=== PATIENT | male | born 1950 | race Caucasian/White ===

== ENCOUNTER 2019-10-01 12:32 | Emergency (ER) | payer MEDICARE, BC ==
[2019-10-01] MEDS: Potassium Chloride 20 MEQ Tab.ER PO ONE (14:07)
[2019-10-01] MEDS: NS + KCl 20mEq/L 1,000 ML IV SCH (14:11)
[2019-10-01] MEDS: Magnesium Sulfate/Water 2 GM in Premix Bag 1 BAG IV ONE (14:33)
--- NOTE | 2019-10-01 14:33 | EDM.PDOC ---
ED HPI GENERAL MEDICAL PROBLEM - General Chief Complaint: Syncope Stated Complaint: syncope Time Seen by Provider: 10/01/19 12:36 Source of Information: Reports: Patient, EMS, Family History Limitations: Reports: No Limitations - History of Present Illness INITIAL COMMENTS - FREE TEXT/NARRATIVE: Patient brought to ER for evaluation via EMS after having three syncopal episodes within a short period of time at home. First episode happened when patient stood up from toilet--he passed out on the floor. No injuries/bruises/pain per patient and EMS from the fall. Son came to assist the patient and get him off bathroom floor and patient passed out again briefly as he sat up. Third episode happened once they got him to a chair. All episodes brief. BP at home noted to be in 70s systolic. IV fluid bolus started by EMS. No history of similar issues per patient. Normal day prior to this for patient. No changes noted in general health over the last few weeks. Denies fever/chills/weight changes. Denies HEENT changes/injury/vision change/change in hearing/congestion/sore throat. Denies neck pain/spinal pain/acute limb pain/pelvis pain. Resp negative for SOB/cough/wheezing/sputum production CV negative for palpitations/chest pain/diaphoresis/dizziness. Positive for syncope. GI negative for nausea/emesis/bowel changes/blood in stool/abdominal pain. Is on peritoneal dialysis. negative for acute changes. Minimal to none in urine output per patient. MS-negative for acute changes/injuries Neuro negative for new focal weakness/headache/speech change Psych negative for acute changes. Patient denies any recent med changes. Family helps him perform dialysis at home. No one sick at household. - Related Data Allergies Allergy/AdvReac Type Severity Reaction Status Date / Time No Known Allergies Allergy Verified 01/08/19 13:28 Home Meds: Home Meds Aspirin [Halfprin] 81 mg PO QAM 06/23/13 [History] Cholecalciferol (Vitamin D3) [Vitamin D3] 5,000 unit PO DAILY 06/23/13 [History] Ferrous Sulfate 325 mg PO BID 06/23/13 [History] atorvaSTATin [Lipitor] 20 mg PO BEDTIME 11/08/13 [History] Cinacalcet [Sensipar] 30 mg PO DAILY@1800 04/08/18 [History] Cyclobenzaprine [Flexeril] 2.5 - 5 mg PO BEDTIME PRN 04/08/18 [History] DULoxetine HCl [Duloxetine HCl] 30 mg PO DAILY 04/08/18 [History] Dextran 70/Hypromellose [Artificial Tears] 15 ml OP Q4HR PRN 04/08/18 [History] Gentamicin [Gentamicin 0.1%] 1 applic TOP DAILY 04/08/18 [History] Insulin Detemir [Levemir Flextouch] 15 units SUBCUT BEDTIME 04/08/18 [History] Insulin Detemir [Levemir Flextouch] 35 units SUBCUT ACBREAKFAST 04/08/18 [ History] Lactulose 15 - 30 ml PO BID PRN 04/08/18 [History] Midodrine 15 mg PO TID 04/08/18 [History] Phentermine HCl [Adipex-P] 18.75 mg PO DAILY 04/08/18 [History] Potassium Chloride 20 meq PO BID 04/08/18 [History] Sevelamer Carbonate [Renvela] 1,600 mg PO DAILY 04/08/18 [History] buPROPion [buPROPion XL] 150 mg PO DAILY 04/08/18 [History] Cyanocobalamin (Vitamin B-12) [Vitamin B-12] 100 mcg PO DAILY 01/08/19 [History] Folic Acid/Vit B Complex and C [Dialyvite] 1 each PO BEDTIME 01/08/19 [History] Furosemide [Lasix] 60 mg PO BID 01/08/19 [History] Gabapentin [Neurontin] 300 mg PO DAILY PRN 01/08/19 [History] Insulin Aspart [NovoLOG] 12 unit SUBCUT DAILY@1200 01/08/19 [History] Insulin Aspart [NovoLOG] 16 unit SUBCUT BIDMEALS 01/08/19 [History] Carmen.dialysis [id number] 7.5 % [Extraneal Icodextrin Dialysis] 2,500 ml IP DAILY 01/08/19 [History] Sennosides/Docusate Sodium [Senna Plus Tablet] 1 each PO DAILY 01/08/19 [History ] Acetaminophen [Tylenol] 650 mg PO Q4H PRN 10/01/19 [History] Adapalene [Differin 0.1% Crm] 1 applic TOP BEDTIME 10/01/19 [History] Mirtazapine 15 mg PO BEDTIME 10/01/19 [History] Past Medical History HEENT History: Reports: Cataract, Impaired Vision, Other (See Below) Other HEENT History: Diabetic retinopathy including retinal hemorrhages and macular edema with current injections. Dry eye syndrome. Cardiovascular History: Reports: CAD, Cardiomyopathy, High Cholesterol, Hypertension, Pulmonary Hypertension, Syncope, Other (See Below) Other Cardiovascular History: Syncopal episodes secondary to hypoglycemia. Left atrial enlargement and pulmonary hypertension by echocardiogram Respiratory History: Reports: COPD, Intubation, Previous, Sleep Apnea, Other ( See Below) Other Respiratory History: Patient compliant with CPAP. Gastrointestinal History: Reports: Cholelithiasis, Chronic Constipation, Other ( See Below) Other Gastrointestinal History: Fatty liver, fatty pancreas, and benign hepatic cyst by ultrasound. Chronic umbilical hernia. Genitourinary History: Reports: BPH, Chronic Renal Insuffiency, Dialysis, Diabetic Nephropathy, Dialysis, Peritoneal, Renal Calculus, Renal Disease, UTI, Recurrent, Other (See Below) Other Genitourinary History: Severe diabetic nephropathy with creatinines greater than 10 with current peritoneal dialysis. History of bilateral renal cysts with right nephrolithiasis but no history of true urolithiasis. Musculoskeletal History: Reports: Arthritis, Back Pain, Chronic, Fracture, Neck Pain, Chronic, Osteoarthritis, Other (See Below) Other Musculoskeletal History: Vertebral body compression fractures. Neurological History: Reports: Neuropathy, Diabetic, Neuropathy, Peripheral, Other (See Below) Other Neuro History: Nonspecific frequent falls and orthostatic hypotension. Psychiatric History: Reports: Addiction, Other (See Below) Other Psychiatric History: Chronic narcotic use secondary to osteoarthritis. Endocrine/Metabolic History: Reports: Diabetes, Type II, Hyperparathyroidism, IDDM, Obesity/BMI 30+, Other (See Below) Other Endocrine/Metabolic History: Hypokalemia Hematologic History: Reports: Anemia, B12 Deficiency, Iron Deficiency, Other ( See Below) Other Hematologic History: Previous IV iron infusions. Oncologic (Cancer) History: Reports: None Dermatologic History: Reports: None - Infectious Disease History Infectious Disease History: Reports: None. Denies: C-Difficile, Chicken Pox, Measles, Meningitis, Mononucleosis, MRSA, Mumps, Pertussis (Whooping Cough), Rheumatic Fever, Rubella, Scarlet Fever, Shingles, VRE - Past Surgical History Head Surgeries/Procedures: Reports: None HEENT Surgical History: Reports: Cataract Surgery, Oral Surgery, Other (See Below) Other HEENT Surgeries/Procedures: Tooth extractions. Bilateral cataract in about 2012. Cardiovascular Surgical History: Reports: None Respiratory Surgical History: Reports: None GI Surgical History: Reports: Colonoscopy, EGD, Other (See Below) Other GI Surgeries/Procedures: EGD and colonoscopy in about 2015 Male Surgical History: Reports: Circumcision, Other (See Below) Other Male Surgeries/Procedures: Circumcision as an infant. Peritoneal catheter placement in about September 2014. Left arm AV fistula placement in January 2018 Endocrine Surgical History: Reports: Parathyroidectomy, Other (See Below) Other Endocrine Surgeries/Procedures: Excision of one parathyroid gland in July 2017. Neurological Surgical History: Reports: Lumbar Spine, Vertebroplasty, Other ( See Below) Other Neurological Surgeries/Procedures: Vertebroplasty and L3 in February 2018 Oncologic Surgical History: Reports: None Dermatological Surgical History: Reports: None - Past Imaging History Past Imaging History: Reports: Angiography (Negative heart catheterization on .), Cardiac Echo (Last echocardiogram on 05/24/14 with ejection fraction of 65% with previous echocardiograms on 08/12/13 and 10/04/11.), MRI (MRI of the lumbar spine on 07/15/16.), Sleep Study (Sleep study with CPAP titration on ), Stress Testing (Persantine PET/CT scan of the heart on 08/12/13. Cardiolite stress test positive for inferior ischemia on 07/15/13 with ejection fraction of 59%. Previous Cardiolite stress test on 10/19/07.), Ultrasound (Gallbladder ultrasound on 01/27/14. Renal ultrasound on 06/23/13, 01/30/13, and 10/23/11.) Social & Family History - Tobacco Use Smoking Status *Q: Never Smoker Second Hand Smoke Exposure: No - Caffeine Use Caffeine Use: Reports: Coffee - Recreational Drug Use Recreational Drug Use: No - Living Situation & Occupation Living situation: Reports: with Family ED ROS GENERAL - Review of Systems Review Of Systems: Comprehensive ROS is negative, except as noted in HPI. ED EXAM, GENERAL - Physical Exam Exam: See Below Exam Limited By: No Limitations General Appearance: Alert, WD/WN, No Apparent Distress Eye Exam: Bilateral Eye: EOMI, PERRL Ears: Hearing Grossly Normal Nose: No: Nasal Deformity, Nasal Swelling, Nasal Drainage Throat/Mouth: Normal Lips, Normal Voice, No Airway Compromise Head: Other (appears to be mild erythema in line across forehead/nontender). No : Facial Swelling, Facial Tenderness, Sinus Tenderness Neck: Supple, Non-Tender, Full Range of Motion. No: Tender Lateral, Tender Midline Respiratory/Chest: No Respiratory Distress, Lungs Clear, Normal Breath Sounds, No Accessory Muscle Use, Chest Non-Tender Cardiovascular: No Murmur, Irregularly Irregular GI/Abdominal: Soft, Non-Tender, No Distention, Pelvis Stable (Male) Exam: Deferred Rectal (Males) Exam: Deferred Back Exam: No: Muscle Spasm Extremities: Non-Tender, Pedal Edema (mild, bilateral) Neurological: Alert, Oriented, Normal Cognition Psychiatric: Normal Affect, Normal Mood Skin Exam: Warm, Dry, Intact EKG INTERPRETATION EKG Date: 10/01/19 Time: 12:53 Rhythm: A-Fib Rate (Beats/Min): 90 [place]: RAD-Right [place] Deviation P-Wave: Absent QRS: Other (morphology suggests aberrant conduction.) ST-T: Other (slightly unusual morphology II and AVF.) QT: Prolonged Comparison: Change From Previous EKG (previous EKG showed sinus rhythm in 2018) Course - Vital Signs Last Recorded V/S: Last Vital Signs Temp 37.0 C 10/01/19 12:33 Pulse 95 10/01/19 14:45 Resp 18 10/01/19 14:45 BP 104/69 10/01/19 14:45 Pulse Ox 95 10/01/19 14:45 - Orders/Labs/Meds Labs: Laboratory Tests 10/01/19 10/01/19 10/01/19 Range/Units 13:15 13:15 13:15 WBC 11.0 H (4.0-10.2) K/uL RBC 4.04 L (4.33-5.41) M/uL Hgb 13.0 L D (13.1-16.8) g/dL Hct 38.2 L (39.0-49.0) % MCV 94.6 (84.0-98.0) fL MCH 32.2 (28.2-33.3) pg MCHC 34.0 (31.7-36.0) g/dL RDW 14.4 H (11.2-14.1) % Plt Count 221 (150-350) K/uL Neut % (Auto) 79.5 (45.0-80.0) % Lymph % (Auto) 10.8 (10.0-50.0) % [place] % (Auto) 7.4 (2.0-14.0) % Eos % (Auto) 1.8 (0.0-5.0) % Baso % (Auto) 0.5 (0.0-2.0) % Neut # (Auto) 8.71 H (1.40-7.00) K/uL Lymph # (Auto) 1.19 (0.50-3.50) K/uL [place] # (Auto) 0.81 (0.00-1.00) K/uL Eos # (Auto) 0.20 (0.00-0.50) K/uL Baso # (Auto) 0.06 (0.00-0.20) K/uL Sodium 130 L (136-145) mmol/L Potassium 2.4 L* (3.5-5.1) mmol/L Chloride 93 L (98-107) mmol/L Carbon Dioxide 27.2 (21.0-32.0) mmol/L BUN 21 H (7-18) mg/dL Creatinine 8.82 H* (0.51-1.17) mg/dL Est Cr Clr Drug Dosing 8.51 mL/min Estimated GFR (MDRD) 6 mL/min Glucose 196 H (74-106) mg/dL Calcium 8.8 (8.5-10.1) mg/dL Magnesium 1.5 L (1.8-2.4) mg/dL Total Bilirubin 0.5 (0.2-1.0) mg/dL AST 19 (15-37) U/L ALT 18 (12-78) U/L Alkaline Phosphatase 187 H (46-116) IU/L Troponin I 0.189 H* (0.000-0.056) ng/mL Total Protein 5.9 L (6.4-8.2) g/dL Albumin 1.9 L (3.4-5.0) g/dL Meds: Medications Discontinued Medications Generic Name Dose Route Start Last Admin Trade Name Freq PRN Reason Stop Dose Admin Potassium Chloride/Sodium Chloride 1,000 mls @ 75 mls/hr 10/01/19 14:00 09/30 14:11 Normal Saline With 20 Meq Kcl IV 75 mls/hr ASDIRECTED CIERA Administration Magnesium Sulfate 2 gm/ Premix 50 mls @ 50 mls/hr 10/01/19 14:17 10/01/19 14: 33 IV 10/01/19 15:16 50 mls/hr ONETIME ONE Administration Potassium Chloride 40 meq 10/01/19 13:58 10/01/19 14:07 Klor-Con M20 PO 10/01/19 13:59 40 meq ONETIME ONE Administration - Re-Assessments/Exams Free Text/Narrative Re-Assessment/Exam: 10/01/19 14:39 Patient's BP noted to hang around 95-115/50-70. This is lower than his usual BP average per self report. He remained without any specific complaints and stated that he felt like his usual self. EKG showed that he is now in Afib. He reports to us that he has not been previously diagnosed with AFib in the past. It is possible that he is experiencing new-onset Afib and subsequent hypotension/RVR with activity that led could have led to syncopal episodes. Troponin also elevated at 0.189. Patient denies any symptoms suggestive of acute cardiac ischemia. Chemistry showed multiple abnormalities, including lower Na/Cl/albumin/total protein. Potassium significantly low at 2.4 as well as Mag at 1.5. Glucose 196. Hgb stable at 13. WBC 11 Oral and IV K ordered. Mag ordered. Call placed to [facility] and patient discussed with from Internal Medicine/Hospitalist. She accepted the pt in transfer for further evaluation of Afib/syncope/ hypotension and electrolyte disturbances. Departure - Departure Time of Disposition: 15:30 Disposition: DC/Tfer to [facility] Condition: Fair Clinical Impression: Hypokalemia, Hypomagnesemia Hypotension Qualifiers: Hypotension type: unspecified hypotension type Qualified Code(s): I95.9 - Hypotension, unspecified Syncopal episodes Qualifiers: Syncope type: unspecified Qualified Code(s): R55 - Syncope and collapse - Discharge Information *PRESCRIPTION DRUG MONITORING PROGRAM REVIEWED*: Not Applicable *COPY OF PRESCRIPTION DRUG MONITORING REPORT IN PATIENT [place]: Not Applicable Referrals: PCP,None [Primary Care Provider] - Forms: ED Department Discharge Sepsis Event Note - Evaluation Sepsis Screening Result: No Definite Risk - Focused Exam Date Exam was Performed: 10/04/19 Time Exam was Performed: 12:52
== END 2019-10-01 15:34 ==
LOC: LL.ED 12:32
DX: I95.9 Hypotension, unspecified (principal); E87.6 Hypokalemia; E83.42 Hypomagnesemia; I25.10 Atherosclerotic heart disease of native coronary artery without angina pectoris; E11.21 Type 2 diabetes mellitus with diabetic nephropathy; E78.00 Pure hypercholesterolemia, unspecified; I10 Essential (primary) hypertension; J44.9 Chronic obstructive pulmonary disease, unspecified; E11.42 Type 2 diabetes mellitus with diabetic polyneuropathy; E66.9 Obesity, unspecified; Z68.25 Body mass index [BMI] 25.0-25.9, adult; I12.9 Hypertensive chronic kidney disease with stage 1 through stage 4 chronic kidney disease, or unspecified chronic kidney disease; N18.9 Chronic kidney disease, unspecified; E11.319 Type 2 diabetes mellitus with unspecified diabetic retinopathy without macular edema; M19.90 Unspecified osteoarthritis, unspecified site; Z79.82 Long term (current) use of aspirin; Z79.4 Long term (current) use of insulin; Z79.899 Other long term (current) drug therapy
CPT/HCPCS: 36415; 80053; 83735; 84484; 85025; 93005; 96365; 99285-25; A9270-GY; J3475; J3480

== ENCOUNTER 2019-12-26 15:45 | Emergency (ER) | payer MEDICARE, BC ==
[2019-12-26] MEDS ORDERED: Sodium Chloride 0.9% 10 ML Syringe FLUSH PRN (15:50)
[2019-12-26] MEDS ORDERED: Famotidine 20 MG/2 ML SDV IVPUSH ONE (15:50)
[2019-12-26] MEDS ORDERED: Glucagon,Human Recombinant 1 MG Vial ONE ×2 (15:53)
[2019-12-26] MEDS ORDERED: 50% Dextrose in Water 50 ML Syringe ONE (15:53)
[2019-12-26] MEDS ORDERED: Dextrose 5%-Lactated Ringers 1,000 ML IV ONE (16:03)
--- NOTE | 2019-12-26 16:25 | EDM.PDOC ---
ED HPI GENERAL MEDICAL PROBLEM - General Chief Complaint: Neuro Symptoms/Deficits Stated Complaint: unresponsive Time Seen by Provider: 12/26/19 16:21 Source of Information: Reports: Patient, EMS, Family (), Old Records ([facility] chart/EMR). Denies: EMS Notes Reviewed (Not available at time of dictation) History Limitations: Reports: Altered Mental Status - History of Present Illness INITIAL COMMENTS - FREE TEXT/NARRATIVE: The patient was brought to the emergency room via ambulance with music education director accompaniment for treatment of a completely nonresponsive episode with the patient found by his in his bed at about 14:30 hours this afternoon. Last known well time was 13:45 hours with the patient eating only toast for breakfast and skipping his lunch today secondary to possible nonspecific nausea and not feeling well. His thought that he was simply sleeping at the time, however then called 911 with music education director measuring an Accu-Chek of 75 mg percent on the scene. He is in overall poor historian secondary to his initial nonresponsiveness and subsequent mild confusion after revival with aggressive treatment as below. Majority of history taken from the patient's and previous medical records. There may have been a mixup with patient's insulin therapy with the patient receiving 100 units yesterday evening rather than the previously prescribed 12 units. The patient denies any chest pain/pressure, heart flutter, dizziness, orthostasis, orthopnea, diaphoresis, paresthesias, recent decreased exercise tolerance, or any other anginal-type symptoms in spite of recent extensive heart surgery on 11/16/2019 with the patient just returning home on 12/21/19. The patient also denies any recent fever, cough, wheezing, dyspnea, etc.. No apparent UTI symptoms with the patient just having completed his peritoneal dialysis earlier this morning. No recent history of abdominal pain, heartburn, emesis, diarrhea, melena, gross hematochezia, or any food intolerance, including fatty foods, etc.. No history of fall or injury, although the music education director did have problems getting the patient down the stairs with a right knee abrasion at time of arrival as below. Initial possibility of tonic-clonic reaction with no known previous history of seizures or current incontinence of stool or urine. No history of recent headaches, visual changes, diplopia, previous change in mental status, or other change in neurological status. No current pain or discomfort. Onset: Today, Unknown/Unsure Onset Date: 12/26/19 Onset Time: 14:30 Duration: Constant Location: Reports: Lower Extremity, Right (Right knee abrasion by music education director as above) Severity: Mild Improves with: Reports: None Worsens with: Reports: None Context: Reports: Other (As above) Associated Symptoms: Reports: Loss of Appetite, Malaise, Nausea/Vomiting (No emesis), Seizure (Possible). 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 Denies: IV/IO - Related Data Allergies Allergy/AdvReac Type Severity Reaction Status Date / Time No Known Allergies Allergy Verified 01/08/19 13:28 Home Meds: Home Meds Aspirin [Halfprin] 81 mg PO QAM 06/23/13 [History] atorvaSTATin [Lipitor] 20 mg PO BEDTIME 11/08/13 [History] Midodrine 15 mg PO TID 04/08/18 [History] Potassium Chloride 20 meq PO BID 04/08/18 [History] Sevelamer Carbonate [Renvela] 1,600 mg PO DAILY 04/08/18 [History] buPROPion [buPROPion XL] 150 mg PO DAILY 04/08/18 [History] Carmen.dialysis Gouu96-Oed 7.5 % [Extraneal Icodextrin Dialysis] 2,500 ml IP DAILY 01/08/19 [History] Cholecalciferol (Vitamin D3) [Vitamin D3] 1 tab PO DAILY 12/26/19 [History] Cinacalcet [Sensipar] 1 tab PO DAILY 12/26/19 [History] Cyanocobalamin (Vitamin B-12) [Vitamin B-12] 1 tab PO QPM 12/26/19 [History] DULoxetine HCl [Drizalma Sprinkle] 1 cap PO DAILY 12/26/19 [History] Digoxin 0.5 tab PO ASDIRECTED 12/26/19 [History] Fludrocortisone [Florinef] 3 tab PO DAILY 12/26/19 [History] Folic Acid/Vit B Complex and C [Dialyvite] 1 tab PO DAILY 12/26/19 [History] Gabapentin [Neurontin] 2 cap PO BEDTIME 12/26/19 [History] Insulin Glargine,Hum.Rec.Anlog [Juanagltrevin Starkey U-100] 12 units SQ QAM 12/26/19 [History] Mupirocin Cream [Bactroban Crm] 1 applic TOP ASDIRECTED 12/26/19 [History] Nitroglycerin 1 tab SL ASDIRECTED 12/26/19 [History] Non-Formulary Medication [NF Drug] 1 tab PO DAILY 12/26/19 [History] Warfarin [Coumadin] 5 mg PO ASDIRECTED 12/26/19 [History] Warfarin [Coumadin] 6 mg PO ASDIRECTED 12/26/19 [History] Past Medical History HEENT History: Reports: Cataract, Impaired Vision, Other (See Below). Denies: Allergic Rhinitis, Glaucoma, Hard of Hearing, Macular Degeneration, Retinal Detachment Other HEENT History: Diabetic retinopathy including retinal hemorrhages and macular edema with current injections. Dry eye syndrome. Cardiovascular History: Reports: Afib, Arrhythmia, Bypass, CAD, Cardiomyopathy, Heart Murmur, High Cholesterol, Hypertension, Pulmonary Hypertension, Syncope, Other (See Below). Denies: Aneurysm, Blood Clots/VTE/DVT, CA Other Cardiovascular History: Syncopal episode x3 on 10/01/2019 possibly secondary to his valvular disease with previous syncopal episodes secondary to hypoglycemia. Left atrial enlargement and pulmonary hypertension by echocardiogram. Aortic valve stenosis and mitral valve insufficiency with additional unknown type of cardiac septal defect requiring surgery as below. Complete right bundle branch block. Chronic d-dimer elevation of unknown significance. Respiratory History: Reports: Bronchitis, Recurrent, COPD, Intubation, Difficult, Intubation, Previous, Pneumonia, Recurrent, Sleep Apnea, Other (See Below). Denies: Asthma, PE, TB Other Respiratory History: Patient compliant with CPAP. Gastrointestinal History: Reports: Cholelithiasis, Chronic Constipation, Colon Polyp, Other (See Below). Denies: Bowel Obstruction, Celiac Disease, Chronic Diarrhea, Fecal Incontinence, Gastritis, GERD, GI Bleed, Hiatal Hernia, Infl ammatory Bowel Disease, Irritable Bowel Syndrome, Pancreatitis, PUD Other Gastrointestinal History: Fatty liver, fatty pancreas, and benign hepatic cyst by ultrasound. Chronic umbilical hernia. Genitourinary History: Reports: BPH, Chronic Renal Insuffiency, Dialysis, Diabetic Nephropathy, Dialysis, Peritoneal, Renal Calculus, Renal Disease, UTI, Recurrent, Other (See Below). Denies: Acute Renal Failure, STD, Urinary Incontinence Other Genitourinary History: Severe diabetic nephropathy with creatinines greater than 10 with current peritoneal dialysis. History of bilateral renal cysts with right nephrolithiasis but no history of true urolithiasis. Musculoskeletal History: Reports: Arthritis, Back Pain, Chronic, Fracture, Neck Pain, Chronic, Osteoarthritis, Other (See Below). Denies: Amputation, Gout, Osteoporosis, RA, SLE Other Musculoskeletal History: Vertebral body compression fractures including L3 with additional transverse process fracture. Neurological History: Reports: Neuropathy, Diabetic, Neuropathy, Peripheral, Other (See Below). Denies: Cerebral Aneurysms, Concussion, CVA, Headaches, Chronic, Head Trauma, Migraines, MS, Parkinson's, Seizure, TIA, Vertigo Other Neuro History: Nonspecific frequent falls and orthostatic hypotension. Psychiatric History: Reports: Addiction, Anxiety, Depression, Other (See Below). Denies: Abuse, Victim of, ADD, ADHD, Alzheimers Disease, Dementia, Psych Hospitalization(s), PTSD, Suicide Attempt, Suicidal Ideation Other Psychiatric History: Chronic narcotic use secondary to osteoarthritis. Endocrine/Metabolic History: Reports: Diabetes, Type II, Hyperparathyroidism, Hypokalemia, Hypomagnesemia, Hypothyroidism, IDDM, Obesity/BMI 30+, Vitamin D Deficiency, Other (See Below) Other Endocrine/Metabolic History: Hypoalbuminemia. Secondary hyperparathyroidism and hypercalcemia secondary to his renal disease. Hematologic History: Reports: Anemia, B12 Deficiency, Iron Deficiency, Other (See Below). Denies: Blood Transfusion(s) Other Hematologic History: Previous IV iron infusions. 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 Immunologic History: Reports: None. Denies: AIDS, HIV, SLE Oncologic (Cancer) History: Reports: Other (See Below). Denies: Basal Cell Carcinoma, Colon, Hodgkin's Lymphoma, Leukemia, Lymphoma, Malignant Melanoma, Non-Hodgkin's Lymphoma, Prostate, Squamous Cell Carcinoma, Thyroid Other Oncologic History: Smoldering multiple myeloma. Dermatologic History: Reports: Venous Stasis Dermatitis. Denies: Eczema, Psoriasis - Infectious Disease History Infectious Disease History: Reports: None. Denies: C-Difficile, Chicken Pox, Measles, Meningitis, Mononucleosis, MRSA, Mumps, Pertussis (Whooping Cough), Rheumatic Fever, Rubella, Scarlet Fever, Shingles, VRE - Past Surgical History Head Surgeries/Procedures: Reports: None HEENT Surgical History: Reports: Cataract Surgery, Oral Surgery, Other (See Below). Denies: Adenoidectomy, Laser Surgery, LASIK, Myringotomy w Tube(s), Naso-Sinus Surgery Other HEENT Surgeries/Procedures: Tooth extractions. Bilateral cataract in about 2012. Cardiovascular Surgical History: Reports: Coronary Artery Bypass, Valve Replacement, Other (See Below) Other Cardiovascular Surgeries/Procedures: Unknown type of ventricular cardiac repair with concomitant two-vessel CABG and mechanical aortic and mitral valve replacements on 11/16/2019. Respiratory Surgical History: Reports: None. Denies: Thoracentesis GI Surgical History: Reports: Colonoscopy, EGD, Polypectomy, Other (See Below). Denies: Appendectomy, Cholecystectomy, Hernia Repair/Other Other GI Surgeries/Procedures: Last EGD in about August 2019 with previous EGD and colonoscopy in about 2015. Male Surgical History: Reports: Circumcision, Other (See Below). Denies: TURP-Transurethral Resection of Prostate, Vasectomy Other Male Surgeries/Procedures: Circumcision as an infant. Peritoneal catheter placement in about September 2014. Left arm AV fistula placement in January 2018 Endocrine Surgical History: Reports: Parathyroidectomy, Other (See Below). Denies: Thyroid Biopsy Other Endocrine Surgeries/Procedures: Excision of one parathyroid gland in July 2017. Neurological Surgical History: Reports: Lumbar Spine, Vertebroplasty, Other (See Below). Denies: C-Spine, Discectomy, Laminectomy, Sacral Spine, Spinal Fusion Other Neurological Surgeries/Procedures: Vertebroplasty and L3 in February 2018 Musculoskeletal Surgical History: Reports: None. Denies: Arthroscopic Procedure, Carpal Tunnel, Ganglion Cyst, Joint Replacement, ORIF, Shoulder Surgery Oncologic Surgical History: Reports: None, Other (See Below) Other Oncologic Surgeries/Procedures: L3 bone biopsy on 01/01/2018 versus February 2018 as above at time of kyphoplasty.? Dermatological Surgical History: Reports: Other (See Below) Other Dermatological Surgeries/Procedures: Excision of benign head nevus in about 1952 or 1954 as an infant. - Past Imaging History Past Imaging History: Reports: Angiography (Likely heart catheterization at [facility] in [place] in October 2019 with subsequent surgeries as above. Note previous negative heart catheterization on 04/19/15.), Cardiac Echo (Last echocardiogram on 05/24/14 with ejection fraction of 65% with previous echocardiograms on 08/12/13 and 10/04/11.), CAT Scan (CT scan of the head on 04/08/2018 and 11/10/2017.), MRI (MRI of the lumbar spine on 07/15/16.), Sleep Study (Sleep study with CPAP titration on 12/28/12), Stress Testing (Persantine PET/CT scan of the heart on 08/12/13. Cardiolite stress test positive for inferior ischemia on 07/15/13 with ejection fraction of 59%. Previous Cardiolite stress test on 10/19/07.), Ultrasound (Gallbladder ultrasound on 01/27/14. Renal ultrasound on 06/23/13, 01/30/13, and 10/23/11.) Social & Family History - Tobacco Use Smoking Status *Q: Never Smoker Tobacco Use Within Last Twelve Months: No Used Tobacco, but Quit: No Smoking Cessation Information Provided To Patient: No Second Hand Smoke Exposure: No Second Hand Smoke Education Provided: No - Caffeine Use Caffeine Use: Reports: None, Coffee. Denies: Energy Drinks, Soda, Tea - Alcohol Use Alcohol Use History: Yes Days Per Week of Alcohol Use: 0 Number of Drinks Per Day: 1 Number of Drinks Per Day Comment: Usually mixed drinks about once every 4 months. No previous DWIs, problems with alcohol abuse, etc. 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 Absent corneal reflex with initial Kussmaul breathing. Following physical exam represents patient after treatment as below with patient back to his apparent normal baseline. Exam Limited By: Altered Mental Status General Appearance: Lethargic (Significantly improved with treatment as below), Obtunded (Resolved with treatment as below) Eye Exam: Bilateral Eye: EOMI, Normal Fundi, Normal Inspection (No nystagmus), PERRL Ears: Normal External Exam, Normal Canal, Hearing Grossly Normal, Normal TMs Nose: Normal Inspection, Normal Mucosa, No Blood Throat/Mouth: Normal Lips, Normal Teeth (Multiple missing teeth), Normal Gums, Normal Oropharynx, Normal Voice, No Airway Compromise, Other (No evidence of aspiration. Mild superficial anterior tongue laceration/bite). No: Dysphagia, Inflammation, Perioral Cyanosis Head: Atraumatic, Normocephalic. No: Facial Swelling, Facial Tenderness, Sinus Tenderness Neck: Supple, Non-Tender, Full Range of Motion, Carotid Bruit (Mild bilateral carotid bruits). No: Lymphadenopathy (L), Lymphadenopathy (R), Tender Lateral, Tender Midline, Thyromegaly Respiratory/Chest: No Respiratory Distress (After treatment as below with initial Kussmaul breathing as above), No Accessory Muscle Use, Chest Non-Tender, Rales (Moderate diffuse bilateral). No: Rhonchi, Wheezing, Pleural Rub, Retractions Cardiovascular: Normal Peripheral Pulses, Regular Rate, Rhythm, No Edema, No Gallop, No JVD, No Rub, Systolic Murmur (Mechanical aortic and mitral valve clicks). No: Diastolic Murmur, Gallop/S3, Gallop/S4, Extra Beats (None observed at time of examination with PVCs by telemetry as below), Friction Rub Peripheral Pulses: 2+: Radial (L) (AV fistula with bruit), Radial (R), 3+: Dorsalis Pedis (L), Dorsalis Pedis (R) GI/Abdominal: Normal Bowel Sounds, Soft, Non-Tender, No Organomegaly, No Distention, No Abnormal Bruit, No Mass, Pelvis Stable, Hernia (2 cm nonincarcerated umbilical hernia), Other (Obese. Peritoneal dialysis catheter noted.). No: Guarding (Male) Exam: Deferred Rectal (Males) Exam: Deferred Back Exam: Full Range of Motion, Other (Mild to moderate kyphosis). No: CVA Tenderness (L), CVA Tenderness (R), Muscle Spasm, Paraspinal Tenderness, Vertebral Tenderness Extremities: Normal Inspection, Normal Range of Motion, Non-Tender, No Pedal Edema, Normal Capillary Refill, Other (Mild bilateral anterior tibial venous stasis dermatitis). No: Mariam's Sign Neurological: Alert, Oriented, CN II-XII Intact, Normal Reflexes (Negative Babinski's, finger to nose, and pronator rotation tests. No evidence of facial paresis, tongue deviation, orthostasis, etc.. Persistent somewhat poor reverse thought processes and mild confusion at time of transfer.), No Motor/Sensory Deficits, Confused (As above), Other (Mild resting tremor with no rigidity or cogwheeling) Psychiatric: Normal Affect, Normal Mood Skin Exam: Warm, Dry, Intact, Normal Color, No Rash, Pallor (Mild), Rash (Venous stasis dermatitis as above), Wound/Incision (2 cm skin tear over right patella). No: Diaphoretic Lymphatic: No Adenopathy EKG INTERPRETATION EKG Date: 12/26/19 Time: 16:32 Rhythm: NSR (With resolution of previous atrial fibrillation) Rate (Beats/Min): 87 Roseboom: LAD-Left Roseboom Deviation (Left cardiac axis with low voltage) QRS: RBBB (Progressive right bundle branch block with QRS interval of 0.14 seconds with stable T wave inversion in lead V1 with new T wave inversion in lead V2) ST-T: Other (As above) Comparison: Change From Previous EKG (As above since last EKG in this facility on 10/01/2019.) EKG Interpretation Comments: 1. Possible anterior wall cardiac ischemia 2. Mildly progressive right bundle branch block 3. History of atrial fibrillation Course - Vital Signs Last Recorded V/S: Last Vital Signs Temp 36.8 C 12/26/19 17:44 Pulse 83 12/26/19 17:44 Resp 15 12/26/19 17:44 BP 99/68 12/26/19 17:44 Pulse Ox 99 12/26/19 17:44 Vital Signs - 24 hr 12/26/19 12/26/19 12/26/19 17:11 17:17 17:44 Temperature [ 36.2 C 36.8 C Temporal] Pulse, 84 85 83 Peripheral [ Right Pulse Oximetry] Respiratory 19 16 15 Rate Blood Pressure 115/71 107/83 99/68 [Right Upper Arm] O2 Sat by Pulse 100 94 L 99 Oximetry 12/26/19 12/26/19 17:52 18:36 Temperature [ Temporal] Pulse, 84 80 Peripheral [ Right Pulse Oximetry] Respiratory 15 18 Rate Blood Pressure 112/71 104/62 [Right Upper Arm] O2 Sat by Pulse 99 97 Oximetry - Orders/Labs/Meds Orders: Active Orders 24 hr Category Date Time Status Blood Glucose Check, Bedside [RC] STAT Care 12/26/19 15:50 Active Blood Glucose Check, Bedside [RC] STAT Care 12/26/19 16:20 Active Blood Glucose Check, Bedside [RC] STAT Care 12/26/19 16:32 Active Cardiac Monitoring [RC] STAT Care 12/26/19 15:50 Active Communication Order [RC] PER UNIT ROUTINE Care 12/26/19 15:50 Active EKG Documentation Completion [RC] ASDIRECTED Care 12/26/19 15:50 Active NIH Stroke Scale [RC] ASDIRECTED Care 12/26/19 15:50 Active Oxygen Therapy, ED [RC] CONTINUOUS Care 12/26/19 15:46 Active Peripheral IV Care [RC] . DIRECTED Care 12/26/19 15:50 Active Pulse Oximetry [RC] CONTINUOUS Care 12/26/19 15:50 Active Up With Assistance [RC] ASDIRECTED Care 12/26/19 15:50 Active Vital Signs [RC] PFP Care 12/26/19 15:50 Active Nothing per Oral Now Diet [DIET] Diet 12/26/19 Breakfast Active Chest 1V Frontal [CR] Stat Exams 12/26/19 15:50 Taken Head wo Cont [CT] Stat Exams 12/26/19 15:50 Taken Head wo Cont [CT] Stat Exams 12/26/19 16:25 Stop Req PROLACTIN [REF] Stat Lab 12/26/19 16:05 Received Sodium Chloride 0.9% [Saline Flush] Med 12/26/19 15:50 Active 10 ml FLUSH ASDIRECTED PRN Obtain Past Medical Record [OM.PC] Stat Oth 12/26/19 15:50 Active Peripheral IV Insertion Adult [OM.PC] Stat Oth 12/26/19 15:50 Ordered Resuscitation Status Stat Resus Stat 12/26/19 16:25 Ordered Medication Orders Sodium Chloride (Saline Flush) 10 ml FLUSH ASDIRECTED PRN PRN Reason: Keep Vein Open Labs: Laboratory Tests 12/26/19 12/26/19 12/26/19 Range/Units 16:05 16:05 16:05 WBC 12.2 H (4.0-10.2) K/uL RBC 2.97 L (4.33-5.41) M/uL Hgb 9.3 L D (13.1-16.8) g/dL Hct 29.5 L (39.0-49.0) % MCV 99.3 H D (84.0-98.0) fL MCH 31.3 (28.2-33.3) pg MCHC 31.5 L (31.7-36.0) g/dL RDW 14.9 H (11.2-14.1) % Plt Count 222 (150-350) K/uL Neut % (Auto) 84.7 H (45.0-80.0) % Lymph % (Auto) 8.7 L (10.0-50.0) % Wythe % (Auto) 4.7 (2.0-14.0) % Eos % (Auto) 1.2 (0.0-5.0) % Baso % (Auto) 0.7 (0.0-2.0) % Neut # (Auto) 10.31 H (1.40-7.00) K/uL Lymph # (Auto) 1.06 (0.50-3.50) K/uL Wythe # (Auto) 0.57 (0.00-1.00) K/uL Eos # (Auto) 0.14 (0.00-0.50) K/uL Baso # (Auto) 0.08 (0.00-0.20) K/uL PT 16.5 H D (9.5-12.0) SEC INR 1.7 APTT 29.9 (24.5-32.8) SEC D-Dimer, Quantitative (0-400) ng/mL Sodium 137 (136-145) mmol/L Potassium 4.5 D (3.5-5.1) mmol/L Chloride 101 (98-107) mmol/L Carbon Dioxide 26.8 (21.0-32.0) mmol/L BUN 36 H (7-18) mg/dL Creatinine 8.29 H* (0.51-1.17) mg/dL Est Cr Clr Drug Dosing TNP Estimated GFR (MDRD) 7 mL/min Glucose 17 L* (74-106) mg/dL POC Glucose (65-110) mg/dl Lactic Acid (0.4-2.0) mmol/L Uric Acid 5.9 (2.6-7.2) mg/dL Calcium 8.4 L (8.5-10.1) mg/dL Magnesium 2.0 (1.8-2.4) mg/dL Total Bilirubin 0.4 (0.2-1.0) mg/dL AST 18 (15-37) U/L ALT 17 (12-78) U/L Alkaline Phosphatase 162 H (46-116) IU/L Creatine Kinase 43 (26-308) U/L Creatine Kinase Index 9.8 H (0.0-2.5) % CK-MB (CK-2) 4.20 H (0.00-3.60) ng/mL Troponin I 0.044 (0.000-0.056) ng/mL NT-Pro-B Natriuret Pep > 99454 H (0-125) pg/mL Total Protein 7.0 (6.4-8.2) g/dL Albumin 2.3 L (3.4-5.0) g/dL TSH, Ultra Sensitive 5.017 H (0.358-3.740) mIU/mL 12/26/19 12/26/19 12/26/19 Range/Units 16:05 16:10 16:33 WBC (4.0-10.2) K/uL RBC (4.33-5.41) M/uL Hgb (13.1-16.8) g/dL Hct (39.0-49.0) % MCV (84.0-98.0) fL MCH (28.2-33.3) pg MCHC (31.7-36.0) g/dL RDW (11.2-14.1) % Plt Count (150-350) K/uL Neut % (Auto) (45.0-80.0) % Lymph % (Auto) (10.0-50.0) % Wythe % (Auto) (2.0-14.0) % Eos % (Auto) (0.0-5.0) % Baso % (Auto) (0.0-2.0) % Neut # (Auto) (1.40-7.00) K/uL Lymph # (Auto) (0.50-3.50) K/uL Wythe # (Auto) (0.00-1.00) K/uL Eos # (Auto) (0.00-0.50) K/uL Baso # (Auto) (0.00-0.20) K/uL PT (9.5-12.0) SEC INR APTT (24.5-32.8) SEC D-Dimer, Quantitative 2460 H (0-400) ng/mL Sodium (136-145) mmol/L Potassium (3.5-5.1) mmol/L Chloride (98-107) mmol/L Carbon Dioxide (21.0-32.0) mmol/L BUN (7-18) mg/dL Creatinine (0.51-1.17) mg/dL Est Cr Clr Drug Dosing Estimated GFR (MDRD) mL/min Glucose (74-106) mg/dL POC Glucose 148 H (65-110) mg/dl Lactic Acid 0.8 (0.4-2.0) mmol/L Uric Acid (2.6-7.2) mg/dL Calcium (8.5-10.1) mg/dL Magnesium (1.8-2.4) mg/dL Total Bilirubin (0.2-1.0) mg/dL AST (15-37) U/L ALT (12-78) U/L Alkaline Phosphatase (46-116) IU/L Creatine Kinase (26-308) U/L Creatine Kinase Index (0.0-2.5) % CK-MB (CK-2) (0.00-3.60) ng/mL Troponin I (0.000-0.056) ng/mL NT-Pro-B Natriuret Pep (0-125) pg/mL Total Protein (6.4-8.2) g/dL Albumin (3.4-5.0) g/dL TSH, Ultra Sensitive (0.358-3.740) mIU/mL Accu-Chek of less than 20 at 1515 hrs., 129 mg percent at 1620 hrs., and 148 at 1632 hrs. Prolactin level drawn with results pending. Meds: Medications Generic Name Dose Route Start Last Admin Trade Name Freq PRN Reason Stop Dose Admin Sodium Chloride 10 ml 08/09/20 15:50 Saline Flush FLUSH ASDIRECTED PRN Keep Vein Open Discontinued Medications Generic Name Dose Route Start Last Admin Trade Name Mague PRN Reason Stop Dose Admin Famotidine 20 mg 12/26/19 15:50 Pepcid IVPUSH 12/26/19 15:51 ONETIME ONE - Radiology Interpretation Free Text/Narrative:: shelter monitor shows normal sinus rhythm with heart rate in the 70s to 80s with occasional PVCs with no other cardiac arrhythmia, including return of previous atrial fibrillation, etc.. Chest x-ray, portable, shows severe cardiomegaly with status post median sternotomy and mechanical aortic and mitral valve replacements. Moderate diffuse COPD changes with moderate CHF, however no pneumothorax. Pulmonary infiltrates difficult to assess secondary to his CHF as above. Telephone consultation at 1712 hrs. with the radiology department at [facility]. Preliminary verbal report of noncontrast CT scan of the head was positive for a possible 3 mm right posterior frontal infarct with additional remote right ganglion infarction. No acute hemorrhages, etc. CT Results Date: 12/26/19 CT Results Time: 17:12 Departure - Departure Time of Disposition: 18:45 Disposition: DC/Tfer to Acute Hospital 02 Condition: Fair Clinical Impression: CHF, Congestive heart failure, D-dimer, elevated, Hypoglycemia, Hypothyroidism (acquired), IDDM (insulin dependent diabetes mellitus), Heart disease, Renal insufficiency, PVC's (premature ventricular contractions), Complete right bundle branch block, Skin tear, Sleep apnea Anemia Qualifiers: Anemia type: iron deficiency Iron deficiency anemia type: other iron deficiency Qualified Code(s): D50.8 - Other iron deficiency anemias 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 Qualified Code(s): J43.1 - Panlobular emphysema Hypertension Qualifiers: Hypertension type: essential hypertension Qualified Code(s): I10 - Essential (primary) hypertension Cerebrovascular accident (CVA) Qualifiers: CVA mechanism: embolism Precerebral and cerebral artery: anterior cerebral artery Laterality of affected vessel: right Qualified Code(s): I63.421 - Cerebral infarction due to embolism of right anterior cerebral artery Atrial fibrillation Qualifiers: Atrial fibrillation type: paroxysmal Qualified Code(s): I48.0 - Paroxysmal atrial fibrillation - Discharge Information *PRESCRIPTION DRUG MONITORING PROGRAM REVIEWED*: Not Applicable *COPY OF PRESCRIPTION DRUG MONITORING REPORT IN PATIENT SANJANA: Not Applicable Forms: ED Department Discharge, Interfacility Transfer EMTALA Sepsis Event Note (ED) - Focused Exam Vital Signs: Vital Signs Temp Pulse Resp BP Pulse Ox 12/26/19 17:44 36.8 C 83 15 99/68 99 12/26/19 17:17 85 16 107/83 94 L 12/26/19 17:11 36.2 C 84 19 115/71 100 - Problem List & Annotations (1) Cerebrovascular accident (CVA) SNOMED Code(s): 520059812 Code(s): I63.9 - CEREBRAL INFARCTION, UNSPECIFIED Status: Acute Priority: High Current Visit: Yes Onset Date: 12/26/19 Annotation/Comment:: Note distal basilar right-sided infarctions with new questionable right posterior frontal lesion as above. History of possible tonic-clonic seizures with tongue biting by my clinical exam. Initial telephone consultation with [facility] in [place] at 1710 hrs. with subsequent telephone consultation at [address] Kunz, hospitalist, and concomitant neurology consultation with Dr. Velazquez, with Dr. Kunz accepting patient for direct admission into their facility with no further treatment recommendations given. Physical exam and vital signs were stable at time of discharge. Possible MRA/MRI of head and neck region planned by accepting providers. Note multiple risk factors for embolic CVA including subtherapeutic INR and recent cardiac surgery as above. No previous history of seizure activity. Prolactin level was drawn with results pending. Qualifiers: CVA mechanism: embolism Precerebral and cerebral artery: anterior cerebral artery Laterality of affected vessel: right Qualified Code(s): I63.421 - Cerebral infarction due to embolism of right anterior cerebral artery (2) CHF, Congestive heart failure SNOMED Code(s): 50570010 Code(s): I50.9 - HEART FAILURE, UNSPECIFIED Status: Acute Priority: High Current Visit: Yes Annotation/Comment:: Moderate CHF with significant BNP elevation with probable additional dialysis required by accepting providers. Note peritoneal dialysis was completed at home earlier today. No current urine output with no IV diuretics given in the emergency room. Note high normal trop onin I with artifactually elevated CK index likely secondary to low baseline CPK. (3) Atrial fibrillation SNOMED Code(s): 58132564 Code(s): I48.91 - UNSPECIFIED ATRIAL FIBRILLATION Status: Chronic Priority: Medium Current Visit: Yes Annotation/Comment:: No atrial fibrillation today with subtherapeutic INR as above. Qualifiers: Atrial fibrillation type: paroxysmal Qualified Code(s): I48.0 - Paroxysmal atrial fibrillation (4) Complete right bundle branch block SNOMED Code(s): 914444284 Code(s): I45.10 - UNSPECIFIED RIGHT BUNDLE-BRANCH BLOCK Status: Chronic Priority: Medium Current Visit: Yes Annotation/Comment:: Mildly progressive today. Observe for now. (5) D-dimer, elevated SNOMED Code(s): 107365945 Code(s): R79.89 - OTHER SPECIFIED ABNORMAL FINDINGS OF BLOOD CHEMISTRY Status: Acute Priority: High Current Visit: Yes Annotation/Comment:: Known history of chronic d-dimer elevation. Further work-up depending on his clinical course. Note chronic renal failure as above. No clinical evidence of DVT or PE. (6) Heart disease SNOMED Code(s): 02180862 Code(s): I51.9 - HEART DISEASE, UNSPECIFIED Status: Chronic Priority: High Current Visit: Yes Annotation/Comment:: No chest pain or anginal type symptoms. Note recent extensive cardiac surgery as above. INR subtherapeutic especially in light of his mechanical aortic and mitral valves. Cardiology consultation depending on his clinical exam. (7) Hypoglycemia SNOMED Code(s): 054053430 Code(s): E16.2 - HYPOGLYCEMIA, UNSPECIFIED Status: Acute Priority: High Current Visit: Yes Onset Date: 04/08/18 Annotation/Comment:: Severe hypoglycemic episode with aggressive treatment in the emergency room as above. Note probable insulin dosing error by the patient's yesterday evening as above. Initial difficulty with obtaining IV access with additional IM glucagon given in this facility with subsequent IV D50, IV glucagon, and D5LR IV fluids with overall good results. Patient's was counseled on proper insulin dosage, etc. Endocrinology consultation depending on his clinical course. (8) Hypothyroidism (acquired) SNOMED Code(s): 684279853 Code(s): E03.9 - HYPOTHYROIDISM, UNSPECIFIED Status: Acute Priority: Medium Current Visit: Yes Annotation/Comment:: TSH once again elevated today. Endocrinology consultation as above. Note history of secondary hyperparathyroidism secondary to his renal disease with subsequent surgery as above. (9) IDDM (insulin dependent diabetes mellitus) SNOMED Code(s): 80357468 Code(s): E11.9 - TYPE 2 DIABETES MELLITUS WITHOUT COMPLICATIONS; Z79.4 - MIGRANT LEADER (CURRENT) USE OF INSULIN Status: Acute Priority: High Current Visit: Yes Annotation/Comment:: History of previous hypoglycemic episodes. Note the patient did skip lunch today. (10) PVC's (premature ventricular contractions) SNOMED Code(s): 07260341 Code(s): I49.3 - VENTRICULAR PREMATURE DEPOLARIZATION Status: Acute Priority: Medium Current Visit: Yes Onset Date: 12/26/19 Annotation/Comment:: Newly diagnosed. Observe for now. (11) Renal insufficiency SNOMED Code(s): 648070514, 108260904 Code(s): N28.9 - DISORDER OF KIDNEY AND URETER, UNSPECIFIED Status: Chronic Priority: High Current Visit: Yes Annotation/Comment:: Note home peritoneal dialysis recently completed earlier this morning as above. Possible central line placement with IV dialysis later today secondary to his refractory CHF. (12) COPD (chronic obstructive pulmonary disease) SNOMED Code(s): 59160356 Code(s): J44.9 - CHRONIC OBSTRUCTIVE PULMONARY DISEASE, UNSPECIFIED Status: Chronic Priority: Medium Current Visit: Yes Annotation/Comment:: COPD by chest x-ray with no current medical therapy. Consider PFTs depending on his clinical course. No recent fever or bronchitic type symptoms. Qualifiers: COPD type: emphysema Emphysema type: panlobular Qualified Code(s): J43.1 - Panlobular emphysema (13) Hypertension SNOMED Code(s): 77275111 Code(s): I10 - ESSENTIAL (PRIMARY) HYPERTENSION Status: Chronic Priority: Medium Current Visit: Yes Annotation/Comment:: Blood Pressures under good control in the emergency room. Qualifiers: Hypertension type: essential hypertension Qualified Code(s): I10 - Essential (primary) hypertension (14) Skin tear SNOMED Code(s): 374545550 Code(s): TVI0649 - Status: Acute Priority: Medium Current Visit: Yes Onset Date: 12/26/19 Annotation/Comment:: Mild skin tear of the right knee as above. Accepting providers to verify tetanus status. (15) Sleep apnea SNOMED Code(s): 94830941 Code(s): G47.30 - SLEEP APNEA, UNSPECIFIED Status: Chronic Priority: Medium Current Visit: Yes Annotation/Comment:: Patient is mostly compliant with his CPAP. His will bring him CPAP machine tomorrow. Qualifiers: Sleep apnea type: obstructive Qualified Code(s): G47.33 - Obstructive sleep apnea (adult) (pediatric) (16) Anemia SNOMED Code(s): 338716060 Code(s): D64.9 - ANEMIA, UNSPECIFIED Status: Chronic Priority: Medium Current Visit: Yes Annotation/Comment:: Known history of chronic anemia second gloria to iron deficiency and his diabetic nephropathy. Continue to observe closely by accepting providers with no evidence of GI bleed, etc. however progressive anemia today based on review of previous medical records. Qualifiers: Anemia type: iron deficiency Iron deficiency anemia type: other iron deficiency Qualified Code(s): D50.8 - Other iron deficiency anemias - Problem List Review Problem List Initiated/Reviewed/Updated: Yes - My Orders Last 24 Hours: My Active Orders 12/26/19 Breakfast Nothing per Oral Now Diet [DIET] 12/26/19 15:46 Oxygen Therapy, ED [RC] CONTINUOUS 12/26/19 15:50 Blood Glucose Check, Bedside [RC] STAT Cardiac Monitoring [RC] STAT Communication Order [RC] PER UNIT ROUTINE EKG Documentation Completion [RC] ASDIRECTED NIH Stroke Scale [RC] ASDIRECTED Peripheral IV Care [RC] . DIRECTED Pulse Oximetry [RC] CONTINUOUS Up With Assistance [RC] ASDIRECTED Vital Signs [RC] PFP Chest 1V Frontal [CR] Stat Head wo Cont [CT] Stat Sodium Chloride 0.9% [Saline Flush] 10 ml FLUSH ASDIRECTED PRN Obtain Past Medical Record [OM.PC] Stat Peripheral IV Insertion Adult [OM.PC] Stat 12/26/19 16:05 PROLACTIN [REF] Stat 12/26/19 16:20 Blood Glucose Check, Bedside [RC] STAT 12/26/19 16:25 Head wo Cont [CT] Stat Resuscitation Status Stat 12/26/19 16:32 Blood Glucose Check, Bedside [RC] STAT - Assessment/Plan Last 24 Hours: My Active Orders 12/26/19 Breakfast Nothing per Oral Now Diet [DIET] 12/26/19 15:46 Oxygen Therapy, ED [RC] CONTINUOUS 12/26/19 15:50 Blood Glucose Check, Bedside [RC] STAT Cardiac Monitoring [RC] STAT Communication Order [RC] PER UNIT ROUTINE EKG Documentation Completion [RC] ASDIRECTED NIH Stroke Scale [RC] ASDIRECTED Peripheral IV Care [RC] . DIRECTED Pulse Oximetry [RC] CONTINUOUS Up With Assistance [RC] ASDIRECTED Vital Signs [RC] PFP Chest 1V Frontal [CR] Stat Head wo Cont [CT] Stat Sodium Chloride 0.9% [Saline Flush] 10 ml FLUSH ASDIRECTED PRN Obtain Past Medical Record [OM.PC] Stat Peripheral IV Insertion Adult [OM.PC] Stat 12/26/19 16:05 PROLACTIN [REF] Stat 12/26/19 16:20 Blood Glucose Check, Bedside [RC] STAT 12/26/19 16:25 Head wo Cont [CT] Stat Resuscitation Status Stat 12/26/19 16:32 Blood Glucose Check, Bedside [RC] STAT Assessment:: As above Plan: As above. Extensive precautions were given to the patient and his , who are in agreement with the treatment plan. Ambulance transfer with music education director accompaniment to [facility]. See E-med sheet for full treatment details.
[2019-12-26 16:39] LABS: CHLORIDE,CL 101 mmol/L (98-107); SODIUM,NA 137 mmol/L (136-145)
[2019-12-26 16:41] LABS: PTT,PARTIAL THROMBOPLSTIN TIME 29.9 SEC (24.5-32.8)
[2019-12-26 18:37] VITALS: BP 104/62; PULSE 80
== END 2019-12-26 18:50 ==
LOC: LL.ED 15:45
DX: E11.649 Type 2 diabetes mellitus with hypoglycemia without coma (principal); I48.91 Unspecified atrial fibrillation; I49.3 Ventricular premature depolarization; I63.421 Cerebral infarction due to embolism of right anterior cerebral artery; I11.0 Hypertensive heart disease with heart failure; I50.9 Heart failure, unspecified; E03.9 Hypothyroidism, unspecified; I45.19 Other right bundle-branch block; G47.30 Sleep apnea, unspecified; N28.9 Disorder of kidney and ureter, unspecified; I25.10 Atherosclerotic heart disease of native coronary artery without angina pectoris; Z95.1 Presence of aortocoronary bypass graft; E78.00 Pure hypercholesterolemia, unspecified; J44.9 Chronic obstructive pulmonary disease, unspecified; E11.40 Type 2 diabetes mellitus with diabetic neuropathy, unspecified; F32.9 Major depressive disorder, single episode, unspecified; F41.9 Anxiety disorder, unspecified; E66.9 Obesity, unspecified; R79.89 Other specified abnormal findings of blood chemistry; D50.8 Other iron deficiency anemias; Z79.82 Long term (current) use of aspirin; Z79.899 Other long term (current) drug therapy; Z79.4 Long term (current) use of insulin; Z79.01 Long term (current) use of anticoagulants
CPT/HCPCS: 36415; 70450; 71045; 80053; 82550; 82553; 82962; 83605; 83735; 83880; 84146; 84443; 84484; 84550; 85025; 85379; 85610; 85730; 93005; 96374; 99285-25; J1610; J7121

== ENCOUNTER 2020-01-11 16:11 | Emergency (ER) | payer MEDICARE, BC ==
[2020-01-11 16:55] LABS: CHLORIDE,CL 92 mmol/L (98-107); SODIUM,NA 131 mmol/L (136-145)
[2020-01-11] MEDS: Sodium Chloride 0.9% 1,000 ML IV ONE (17:00)
[2020-01-11] MEDS: Midodrine 5 MG Tab PO ONE (17:52)
--- NOTE | 2020-01-11 18:05 | EDM.PDOC ---
ED HPI GENERAL MEDICAL PROBLEM - General Chief Complaint: Syncope Stated Complaint: syncope Time Seen by Provider: 01/11/20 16:15 Source of Information: Reports: Patient, EMS, Family - History of Present Illness INITIAL COMMENTS - FREE TEXT/NARRATIVE: Pt presents to ER via EMS after having 3 syncopal episodes at home today First lasted 5 minutes Second lasted 5 minutes and 3rd lasted 7 minutes witnessed by EMS notes SBP after 3rd episode was in the 60's SBP in ER initially 70's Pt recently admitted to [facility] 12/24/19 with discharge 01/03/20 for similar episodes No seizures today Pt is on peritoneal dialysis Onset: Today Duration: Getting Worse Location: Reports: Generalized - Related Data Allergies Allergy/AdvReac Type Severity Reaction Status Date / Time No Known Allergies Allergy Verified 01/11/20 17:13 Home Meds: Home Meds Aspirin [Halfprin] 81 mg PO QAM 06/23/13 [History] atorvaSTATin [Lipitor] 20 mg PO BEDTIME 11/08/13 [History] Midodrine 15 mg PO TID@,,04/08/18 [History] Potassium Chloride 20 meq PO Q12HR 04/08/18 [History] Sevelamer Carbonate [Renvela] 1 tab PO TIDMEALS 04/08/18 [History] buPROPion [buPROPion XL] 150 mg PO QAM 04/08/18 [History] Camren.dialysis [id number] 7.5 % [Extraneal Icodextrin Dialysis] 2,500 ml IP DAILY 01/08/19 [History] DULoxetine HCl [Drizalma Sprinkle] 1 cap PO DAILY 12/26/19 [History] Gabapentin [Neurontin] 200 mg PO BEDTIME 12/26/19 [History] Insulin Glargine,Hum.Rec.Anlog [Basaglar Kwikpen U-100] 8 units SUBCUT QAM 12/26/19 [History] Mupirocin Cream [Bactroban Crm] 1 applic TOP Q2D 12/26/19 [History] Nitroglycerin 1 tab SL ASDIRECTED 12/26/19 [History] Non-Formulary Medication [NF Drug] 1 tab PO BID 12/26/19 [History] Acetaminophen 650 mg PO Q4H PRN 01/11/20 [History] Cholecalciferol (Vitamin D3) [Vitamin D3] 5,000 unit PO DAILY 01/11/20 [History] Cinacalcet [Sensipar] 30 mg PO DAILY 01/11/20 [History] Fludrocortisone [Florinef] 0.1 mg PO DAILY 01/11/20 [History] Insulin Aspart [NovoLOG] 3 unit SUBCUT TIDMEALS 01/11/20 [History] Mirtazapine 30 mg PO BEDTIME 01/11/20 [History] Multivitamin [Daily Malachi] 1 tab PO DAILY 01/11/20 [History] Non-Formulary Medication [NF Drug] 1 ea IP ASDIRECTED PRN 01/11/20 [History] Warfarin [Coumadin] 2.5 mg PO SUTUWETHFRSA@79901/11/20 [History] Warfarin [Coumadin] 5 mg PO MO@79901/11/20 [History] Past Medical History HEENT History: Reports: Cataract, Impaired Vision, Other (See Below). Denies: Allergic Rhinitis, Glaucoma, Hard of Hearing, Macular Degeneration, Retinal Detachment Other HEENT History: Diabetic retinopathy including retinal hemorrhages and macular edema with current injections. Dry eye syndrome. Cardiovascular History: Reports: Afib, Arrhythmia, Bypass, CAD, Cardiomyopathy, Heart Murmur, High Cholesterol, Hypertension, Pulmonary Hypertension, Syncope, Other (See Below). Denies: Aneurysm, Blood Clots/VTE/DVT, [place] Other Cardiovascular History: Syncopal episode x3 on 10/01/2019 possibly secondary to his valvular disease with previous syncopal episodes secondary to hypoglycemia. Left atrial enlargement and pulmonary hypertension by echocardiogram. Aortic valve stenosis and mitral valve insufficiency with additional unknown type of cardiac septal defect requiring surgery as below. Complete right bundle branch block. Chronic d-dimer elevation of unknown significance. Respiratory History: Reports: Bronchitis, Recurrent, COPD, Intubation, Difficult, Intubation, Previous, Pneumonia, Recurrent, Sleep Apnea, Other (See Below). Denies: Asthma, PE, TB Other Respiratory History: Patient compliant with CPAP. Gastrointestinal History: Reports: Cholelithiasis, Chronic Constipation, Colon Polyp, Other (See Below). Denies: Bowel Obstruction, Celiac Disease, Chronic Diarrhea, Fecal Incontinence, Gastritis, GERD, GI Bleed, Hiatal Hernia, Inflammatory Bowel Disease, Irritable Bowel Syndrome, Pancreatitis, PUD Other Gastrointestinal History: Fatty liver, fatty pancreas, and benign hepatic cyst by ultrasound. Chronic umbilical hernia. Genitourinary History: Reports: BPH, Chronic Renal Insuffiency, Dialysis, Diabetic Nephropathy, Dialysis, Peritoneal, Renal Calculus, Renal Disease, UTI, Recurrent, Other (See Below). Denies: Acute Renal Failure, STD, Urinary Incontinence Other Genitourinary History: Severe diabetic nephropathy with creatinines greater than 10 with current peritoneal dialysis. History of bilateral renal cysts with right nephrolithiasis but no history of true urolithiasis. Musculoskeletal History: Reports: Arthritis, Back Pain, Chronic, Fracture, Neck Pain, Chronic, Osteoarthritis, Other (See Below). Denies: Amputation, Gout, Osteoporosis, RA, SLE Other Musculoskeletal History: Vertebral body compression fractures including L3 with additional transverse process fracture. Neurological History: Reports: Neuropathy, Diabetic, Neuropathy, Peripheral, Other (See Below). Denies: Cerebral Aneurysms, Concussion, CVA, Headaches, Chronic, Head Trauma, Migraines, MS, Parkinson's, Seizure, TIA, Vertigo Other Neuro History: Nonspecific frequent falls and orthostatic hypotension. Psychiatric History: Reports: Addiction, Anxiety, Depression, Other (See Below). Denies: Abuse, Victim of, ADD, ADHD, Alzheimers Disease, Dementia, Psych Hospitalization(s), PTSD, Suicide Attempt, Suicidal Ideation Other Psychiatric History: Chronic narcotic use secondary to osteoarthritis. Endocrine/Metabolic History: Reports: Diabetes, Type II, Hyperparathyroidism, Hypokalemia, Hypomagnesemia, Hypothyroidism, IDDM, Obesity/BMI 30+, Vitamin D Deficiency, Other (See Below) Other Endocrine/Metabolic History: Hypoalbuminemia. Secondary hyperparathyroidism and hypercalcemia secondary to his renal disease. Hematologic History: Reports: Anemia, B12 Deficiency, Iron Deficiency, Other (See Below). Denies: Blood Transfusion(s) Other Hematologic History: Previous IV iron infusions. 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 Immunologic History: Reports: None. Denies: AIDS, HIV, SLE Oncologic (Cancer) History: Reports: Other (See Below). Denies: Basal Cell Carcinoma, Colon, Hodgkin's Lymphoma, Leukemia, Lymphoma, Malignant Melanoma, Non-Hodgkin's Lymphoma, Prostate, Squamous Cell Carcinoma, Thyroid Other Oncologic History: Smoldering multiple myeloma. Dermatologic History: Reports: Venous Stasis Dermatitis. Denies: Eczema, Psoriasis - Infectious Disease History Infectious Disease History: Reports: None. Denies: C-Difficile, Chicken Pox, Measles, Meningitis, Mononucleosis, MRSA, Mumps, Pertussis (Whooping Cough), Rheumatic Fever, Rubella, Scarlet Fever, Shingles, VRE - Past Surgical History Head Surgeries/Procedures: Reports: None HEENT Surgical History: Reports: Cataract Surgery, Oral Surgery, Other (See Below). Denies: Adenoidectomy, Laser Surgery, LASIK, Myringotomy w Tube(s), Naso-Sinus Surgery Other HEENT Surgeries/Procedures: Tooth extractions. Bilateral cataract in about 2012. Cardiovascular Surgical History: Reports: Coronary Artery Bypass, Valve Replacement, Other (See Below) Other Cardiovascular Surgeries/Procedures: Unknown type of ventricular cardiac repair with concomitant two-vessel CABG and mechanical aortic and mitral valve replacements on 11/16/2019. Respiratory Surgical History: Reports: None. Denies: Thoracentesis GI Surgical History: Reports: Colonoscopy, EGD, Polypectomy, Other (See Below). Denies: Appendectomy, Cholecystectomy, Hernia Repair/Other Other GI Surgeries/Procedures: Last EGD in about August 2019 with previous EGD and colonoscopy in about 2015. Male Surgical History: Reports: Circumcision, Other (See Below). Denies: TURP-Transurethral Resection of Prostate, Vasectomy Other Male Surgeries/Procedures: Circumcision as an infant. Peritoneal cat heter placement in about September 2014. Left arm AV fistula placement in January 2018 Endocrine Surgical History: Reports: Parathyroidectomy, Other (See Below). Denies: Thyroid Biopsy Other Endocrine Surgeries/Procedures: Excision of one parathyroid gland in July 2017. Neurological Surgical History: Reports: Lumbar Spine, Vertebroplasty, Other (See Below). Denies: C-Spine, Discectomy, Laminectomy, Sacral Spine, Spinal Fusion Other Neurological Surgeries/Procedures: Vertebroplasty and L3 in February 2018 Musculoskeletal Surgical History: Reports: None. Denies: Arthroscopic Procedure, Carpal Tunnel, Ganglion Cyst, Joint Replacement, ORIF, Shoulder Surgery Oncologic Surgical History: Reports: None, Other (See Below) Other Oncologic Surgeries/Procedures: L3 bone biopsy on 01/01/2018 versus February 2018 as above at time of kyphoplasty.? Dermatological Surgical History: Reports: Other (See Below) Other Dermatological Surgeries/Procedures: Excision of benign head nevus in about 1952 or 1953 as an . - Past Imaging History Past Imaging History: Reports: Angiography (Likely heart catheterization at [facility] in [place] in October 2019 with subsequent surgeries as above. Note previous negative heart catheterization on 04/19/15.), Cardiac Echo (Last echocardiogram on 05/24/14 with ejection fraction of 65% with previous echocardiograms on 08/12/13 and 10/04/11.), CAT Scan (CT scan of the head on 04/08/2018 and 11/10/2017.), MRI (MRI of the lumbar spine on 07/15/16.), Sleep Study (Sleep study with CPAP titration on 12/28/12), Stress Testing (Persantine PET/CT scan of the heart on 08/12/13. Cardiolite stress test positive for inferior ischemia on 07/15/13 with ejection fraction of 59%. Previous Cardiolite stress test on 10/19/07.), Ultrasound (Gallbladder ultrasound on 01/27/14. Renal ultrasound on 06/23/13, 01/30/13, and 10/23/11.) Social & Family History - Caffeine Use Caffeine Use: Reports: None, Coffee. 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65) ED ROS GENERAL - Review of Systems Review Of Systems: See Below Respiratory: Reports: No Symptoms Cardiovascular: Reports: No Symptoms GI/Abdominal: Reports: No Symptoms Neurological: Reports: Syncope - Physical Exam Exam: See Below Exam Limited By: Other (Slow to respond) General Appearance: Lethargic, Moderate Distress, Other (Pale) Eye Exam: Bilateral Eye: EOMI, PERRL Ears: Normal External Exam Nose: Normal Inspection Throat/Mouth: Normal Oropharynx Head Exam: Atraumatic Neck: Supple Respiratory/Chest: Decreased Breath Sounds Cardiovascular: Irregularly Irregular GI/Abdominal: Soft, Non-Tender Neuro Exam (Abbreviated): No Motor/Sensory Deficits Extremities: Pedal Edema Course - Vital Signs Last Recorded V/S: Last Vital Signs Temp 97.4 F 01/11/20 16:15 Pulse 94 01/11/20 17:35 Resp 18 01/11/20 17:35 BP 96/65 01/11/20 17:35 Pulse Ox 100 01/11/20 17:35 - Orders/Labs/Meds Orders: Active Orders 24 hr Category Date Time Status EKG Documentation Completion [RC] ASDIRECTED Care 01/11/20 16:15 Active Labs: Laboratory Tests 01/11/20 01/11/20 01/11/20 Range/Units 16:20 16:20 16:20 WBC 15.2 H (4.0-10.2) K/uL RBC 3.85 L (4.33-5.41) M/uL Hgb 12.2 L D (13.1-16.8) g/dL Hct 37.5 L (39.0-49.0) % MCV 97.4 (84.0-98.0) fL MCH 31.7 (28.2-33.3) pg MCHC 32.5 (31.7-36.0) g/dL RDW 16.6 H (11.2-14.1) % Plt Count 229 (150-350) K/uL Neut % (Auto) 84.3 H (45.0-80.0) % Lymph % (Auto) 9.2 L (10.0-50.0) % [place] % (Auto) 3.8 (2.0-14.0) % Eos % (Auto) 2.0 (0.0-5.0) % Baso % (Auto) 0.7 (0.0-2.0) % Neut # (Auto) 12.78 H (1.40-7.00) K/uL Lymph # (Auto) 1.39 (0.50-3.50) K/uL [place] # (Auto) 0.58 (0.00-1.00) K/uL Eos # (Auto) 0.31 (0.00-0.50) K/uL Baso # (Auto) 0.10 (0.00-0.20) K/uL INR Sodium 131 L (136-145) mmol/L Potassium 3.7 (3.5-5.1) mmol/L Chloride 92 L (98-107) mmol/L Carbon Dioxide 25.8 (21.0-32.0) mmol/L BUN 27 H (7-18) mg/dL Creatinine 5.82 H* D (0.51-1.17) mg/dL Est Cr Clr Drug Dosing TNP Estimated GFR (MDRD) 10 mL/min Glucose 204 H (74-106) mg/dL Calcium 9.7 (8.5-10.1) mg/dL Total Bilirubin 0.4 (0.2-1.0) mg/dL AST 24 (15-37) U/L ALT 29 (12-78) U/L Alkaline Phosphatase 156 H (46-116) IU/L Troponin I 0.055 (0.000-0.056) ng/mL Total Protein 7.0 (6.4-8.2) g/dL Albumin 2.2 L (3.4-5.0) g/dL Digoxin 0.14 L (0.90-2.00) ng/mL 01/11/20 Range/Units 16:45 WBC (4.0-10.2) K/uL RBC (4.33-5.41) M/uL Hgb (13.1-16.8) g/dL Hct (39.0-49.0) % MCV (84.0-98.0) fL MCH (28.2-33.3) pg MCHC (31.7-36.0) g/dL RDW (11.2-14.1) % Plt Count (150-350) K/uL Neut % (Auto) (45.0-80.0) % Lymph % (Auto) (10.0-50.0) % [place] % (Auto) (2.0-14.0) % Eos % (Auto) (0.0-5.0) % Baso % (Auto) (0.0-2.0) % Neut # (Auto) (1.40-7.00) K/uL Lymph # (Auto) (0.50-3.50) K/uL [place] # (Auto) (0.00-1.00) K/uL Eos # (Auto) (0.00-0.50) K/uL Baso # (Auto) (0.00-0.20) K/uL INR 1.3 Sodium (136-145) mmol/L Potassium (3.5-5.1) mmol/L Chloride (98-107) mmol/L Carbon Dioxide (21.0-32.0) mmol/L BUN (7-18) mg/dL Creatinine (0.51-1.17) mg/dL Est Cr Clr Drug Dosing Estimated GFR (MDRD) mL/min Glucose (74-106) mg/dL Calcium (8.5-10.1) mg/dL Total Bilirubin (0.2-1.0) mg/dL AST (15-37) U/L ALT (12-78) U/L Alkaline Phosphatase (46-116) IU/L Troponin I (0.000-0.056) ng/mL Total Protein (6.4-8.2) g/dL Albumin (3.4-5.0) g/dL Digoxin (0.90-2.00) ng/mL Meds: Medications Discontinued Medications Generic Name Dose Route Start Last Admin Trade Name Freq PRN Reason Stop Dose Admin Sodium Chloride 1,000 mls @ 1,000 mls/hr 01/11/20 16:15 01/11/20 17:00 Normal Saline IV 01/11/20 17:14 1,000 mls/hr .BOLUS ONE Administration Midodrine 10 mg 01/11/20 17:45 01/11/20 17:52 Midodrine PO 01/11/20 17:46 10 mg NOW ONE Administration - Re-Assessments/Exams Free Text/Narrative Re-Assessment/Exam: 01/11/20 18:05 See lab Pt given IVF in ER SBP now 88/58 HR 92 D/W Dr Ahmadi On-call hospitalist [facility] Will accept in transfer Provider suggested giving Midodrine 10 mg Given in ER Departure - Departure Time of Disposition: 18:15 Disposition: DC/Tfer to Acute Hospital 02 Clinical Impression: Syncopal episodes Qualifiers: Syncope type: unspecified Qualified Code(s): R55 - Syncope and collapse - Discharge Information *PRESCRIPTION DRUG MONITORING PROGRAM REVIEWED*: Not Applicable *COPY OF PRESCRIPTION DRUG MONITORING REPORT IN PATIENT [place]: Not Applicable Referrals: Christina Gary NP [Primary Care Provider] - Sepsis Event Note (ED) - Evaluation Sepsis Screening Result: No Definite Risk - Focused Exam Vital Signs: Vital Signs Temp Pulse Resp BP Pulse Ox 01/11/20 17:35 94 18 96/65 100 01/11/20 17:00 94 20 88/56 L 97 01/11/20 16:43 95 20 87/54 L 95 01/11/20 16:28 94 18 78/50 L 97 01/11/20 16:15 97.4 F 93 18 88/42 L 96 - My Orders Last 24 Hours: My Active Orders 01/11/20 16:15 EKG Documentation Completion [RC] ASDIRECTED - Assessment/Plan Last 24 Hours: My Active Orders 01/11/20 16:15 EKG Documentation Completion [RC] ASDIRECTED
[2020-01-11] MEDS: Sodium Chloride 0.9% 1,000 ML IV SCH (18:33)
== END 2020-01-11 19:10 ==
LOC: LL.ED 16:11
DX: R55 Syncope and collapse (principal); I12.0 Hypertensive chronic kidney disease with stage 5 chronic kidney disease or end stage renal disease; E11.22 Type 2 diabetes mellitus with diabetic chronic kidney disease; N18.6 End stage renal disease; Z99.2 Dependence on renal dialysis; I25.10 Atherosclerotic heart disease of native coronary artery without angina pectoris; I48.91 Unspecified atrial fibrillation; J44.9 Chronic obstructive pulmonary disease, unspecified; E11.21 Type 2 diabetes mellitus with diabetic nephropathy; M19.90 Unspecified osteoarthritis, unspecified site; E11.42 Type 2 diabetes mellitus with diabetic polyneuropathy; E11.319 Type 2 diabetes mellitus with unspecified diabetic retinopathy without macular edema; F41.9 Anxiety disorder, unspecified; F32.9 Major depressive disorder, single episode, unspecified; E66.9 Obesity, unspecified; Z79.82 Long term (current) use of aspirin; Z79.4 Long term (current) use of insulin; Z79.899 Other long term (current) drug therapy
CPT/HCPCS: 36415; 80053; 80162; 84484; 85025; 85610; 93005; 96360; 96361; 99285; A9270; J7030; 99284

== ENCOUNTER 2020-05-25 19:28 | Emergency (ER) | payer MEDICARE, BC ==
[2020-05-25] MEDS ORDERED: Sodium Chloride 0.9% 10 ML Syringe FLUSH PRN (19:43)
--- NOTE | 2020-05-25 19:43 | EDM.PDOC ---
ED HPI GENERAL MEDICAL PROBLEM - General Chief Complaint: General Stated Complaint: weakness, fall, ulcerations Time Seen by Provider: 05/25/20 19:35 Source of Information: Reports: Patient, EMS, EMS Notes Reviewed (Not available at time of dictation), Family (Limited history from the patient's by telephone), Old Records ([facility] chart/EMR) History Limitations: Reports: Altered Mental Status - History of Present Illness INITIAL COMMENTS - FREE TEXT/NARRATIVE: The patient was brought to the emergency room via ambulance with commercial collections specialist accompaniment with normal stat Accu-Chek of 115 mg percent however a blood pressure of only 84/48 with her initial assessment. O2 sat was started at 2 L/min by nasal cannula with no other treatment given in route. The patient is an extremely poor historian secondary to his confusion with limited history obtained from the commercial collections specialist through his at their home. The patient apparently has been having some progressive weakness and had a minor fall both at noon and 2 PM this afternoon with no history of significant head injury, etc., however he was unable to get off of the floor with paramedics called shortly prior to arrival. No apparent recent chest pain or anginal type symptoms. He does have daily peritoneal dialysis at home, however not yet this evening. The patient was apparently recently discharged from [facility] 2 days ago with hospitalization reason for CHF. No history of significant head injury based on limited history from his with the patient simply rolling out of bed 2 times earlier this afternoon as above, however note current Coumadin therapy. He denies any pain or discomfort. Onset: Today, Unknown/Unsure Onset Date: 05/25/20 Onset Time: 12:00 Quality: Reports: Same as Previous Episode Severity: Moderate (Weakness) Improves with: Reports: None Worsens with: Reports: None Context: Reports: Trauma (As above), Other (As above). Denies: Sick Contact Associated Symptoms: Reports: Confusion, Weakness. Denies: Chest Pain, Cough, Diaphoresis, Fever/Chills, Loss of Appetite, Nausea/Vomiting, Rash, Seizure, Shortness of Breath Treatments [employer]: Reports: Oxygen, Other (see below) (As above) - Related Data Allergies Allergy/AdvReac Type Severity Reaction Status Date / Time No Known Allergies Allergy Verified 05/25/20 20:56 Home Meds: Home Meds Aspirin [Halfprin] 81 mg PO QAM 06/23/13 [History] atorvaSTATin [Lipitor] 20 mg PO BEDTIME 11/08/13 [History] Midodrine 15 mg PO TID@,04/08/18 [History] Potassium Chloride 20 meq PO Q12HR 04/08/18 [History] Sevelamer Carbonate [Renvela] 1 tab PO TIDMEALS 04/08/18 [History] buPROPion [buPROPion XL] 150 mg PO QAM 04/08/18 [History] Carmen.dialysis [id number] 7.5 % [Extraneal Icodextrin Dialysis] 2,500 ml IP DAILY 01/08/19 [History] DULoxetine HCl [Drizalma Sprinkle] 1 cap PO DAILY 12/26/19 [History] Gabapentin [Neurontin] 200 mg PO BEDTIME 12/26/19 [History] Insulin Glargine,Hum.Rec.Anlog [Basaglar Kwikpen U-100] 8 units SUBCUT QAM 12/26/19 [History] Mupirocin Cream [Bactroban Crm] 1 applic TOP Q2D 12/26/19 [History] Nitroglycerin 1 tab SL ASDIRECTED 12/26/19 [History] Non-Formulary Medication [NF Drug] 1 tab PO BID 12/26/19 [History] Acetaminophen 650 mg PO Q4H PRN 01/11/20 [History] Cholecalciferol (Vitamin D3) [Vitamin D3] 5,000 unit PO DAILY 01/11/20 [History] Cinacalcet [Sensipar] 30 mg PO DAILY 01/11/20 [History] Fludrocortisone [Florinef] 0.1 mg PO DAILY 01/11/20 [History] Insulin Aspart [NovoLOG] 3 unit SUBCUT TIDMEALS 01/11/20 [History] Mirtazapine 30 mg PO BEDTIME 01/11/20 [History] Multivitamin [Daily Malachi] 1 tab PO DAILY 01/11/20 [History] Non-Formulary Medication [NF Drug] 1 ea IP ASDIRECTED PRN 01/11/20 [History] Warfarin [Coumadin] 2.5 mg PO SUTUWETHFRSA@0801/11/20 [History] Warfarin [Coumadin] 5 mg PO MO@79901/11/20 [History] Past Medical History HEENT History: Reports: Cataract, Impaired Vision, Other (See Below). Denies: Allergic Rhinitis, Glaucoma, Hard of Hearing, Macular Degeneration, Retinal De tachment Other HEENT History: Diabetic retinopathy including retinal hemorrhages and macular edema with current injections. Dry eye syndrome. Cardiovascular History: Reports: Afib, Arrhythmia, Bypass, CAD, Cardiomyopathy, Heart Failure, Heart Murmur, High Cholesterol, Hypertension, Pulmonary Hypertension, Syncope, Other (See Below). Denies: Aneurysm, Blood Clots/VTE/DVT, IL Other Cardiovascular History: Syncopal episode x3 on 01/11/2020 and on 10/01/2019 possibly secondary to his valvular disease with previous syncopal episodes secondary to hypoglycemia. Left atrial enlargement and pulmonary hypertension by echocardiogram. Aortic valve stenosis and mitral valve insufficiency with additional unknown type of cardiac septal defect requiring surgery as below. Complete right bundle branch block and first-degree AV block. PVCs. Chronic d- dimer elevation of unknown significance. Respiratory History: Reports: Bronchitis, Recurrent, COPD, Intubation, Difficult, Intubation, Previous, Pneumonia, Recurrent, Sleep Apnea, Other (See Below). Denies: Asthma, PE, TB Other Respiratory History: Patient compliant with CPAP. Gastrointestinal History: Reports: Cholelithiasis, Chronic Constipation, Colon Polyp, Other (See Below). Denies: Bowel Obstruction, Celiac Disease, Chronic Diarrhea, Fecal Incontinence, Gastritis, GERD, GI Bleed, Hiatal Hernia, Inflammatory Bowel Disease, Irritable Bowel Syndrome, Pancreatitis, PUD Other Gastrointestinal History: Fatty liver, fatty pancreas, and benign hepatic cyst by ultrasound. Chronic umbilical hernia. Genitourinary History: Reports: BPH, Chronic Renal Insuffiency, Dialysis, Diabetic Nephropathy, Dialysis, Peritoneal, Renal Calculus, Renal Disease, UTI, Recurrent, Other (See Below). Denies: Acute Renal Failure, STD, Urinary Incontinence Other Genitourinary History: Severe diabetic nephropathy with creatinines greater than 10 with current peritoneal dialysis. History of bilateral renal cysts with right nephrolithiasis but no history of true urolithiasis. Musculoskeletal History: Reports: Arthritis, Back Pain, Chronic, Fracture, Neck Pain, Chronic, Osteoarthritis, Other (See Below). Denies: Amputation, Gout, Osteoporosis, RA, SLE Other Musculoskeletal History: Vertebral body compression fractures including L3 with additional transverse process fracture. Kyphosis. Neurological History: Reports: CVA, Neuropathy, Diabetic, Neuropathy, Peripheral, Other (See Below). 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 Nonspecific frequent falls and orthostatic hypotension. Psychiatric History: Reports: Addiction, Anxiety, Depression, Other (See Below). Denies: Abuse, Victim of, ADD, ADHD, Alzheimers Disease, Dementia, Psych Hospitalization(s), PTSD, Suicide Attempt, Suicidal Ideation Other Psychiatric History: Chronic narcotic use secondary to osteoarthritis. Endocrine/Metabolic History: Reports: Diabetes, Type II, Hyperparathyroidism, Hypokalemia, Hypomagnesemia, Hypothyroidism, IDDM, Obesity/BMI 30+, Vitamin D Deficiency, Other (See Below) Other Endocrine/Metabolic History: Hyponatremia. Hypoalbuminemia. Secondary hyperparathyroidism and hypercalcemia secondary to his renal disease. Hematologic History: Reports: Anemia, B12 Deficiency, Iron Deficiency, Other (See Below). Denies: Blood Transfusion(s) Other Hematologic History: Previous IV iron infusions. 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 Immunologic History: Reports: Immunosuppression. Denies: AIDS, HIV, SLE Other Immunologic History: Dialysis and smoldering multiple myeloma. Oncologic (Cancer) History: Reports: Other (See Below). Denies: Basal Cell Carcinoma, Colon, Hodgkin's Lymphoma, Leukemia, Lymphoma, Malignant Melanoma, Non-Hodgkin's Lymphoma, Prostate, Squamous Cell Carcinoma, Thyroid Other Oncologic History: Smoldering multiple myeloma. Dermatologic History: Reports: Venous Stasis Dermatitis. Denies: Eczema, Psoriasis - Infectious Disease History Infectious Disease History: Reports: None. Denies: C-Difficile, Chicken Pox, Measles, Meningitis, Mononucleosis, MRSA, Mumps, Pertussis (Whooping Cough), Rheumatic Fever, Rubella, Scarlet Fever, Shingles, VRE - Past Surgical History Head Surgeries/Procedures: Reports: None HEENT Surgical History: Reports: Cataract Surgery, Oral Surgery, Other (See Below). Denies: Adenoidectomy, Laser Surgery, LASIK, Myringotomy w Tube(s), Naso-Sinus Surgery Other HEENT Surgeries/Procedures: Tooth extractions. Bilateral cataract in about 2012. Cardiovascular Surgical History: Reports: Coronary Artery Bypass, Valve Replacement, Other (See Below) Other Cardiovascular Surgeries/Procedures: Unknown type of ventricular cardiac repair with concomitant two-vessel CABG and mechanical aortic and mitral valve replacements on 11/16/2019. Respiratory Surgical History: Reports: None. Denies: Thoracentesis GI Surgical History: Reports: Colonoscopy, EGD, Polypectomy, Other (See Below). Denies: Appendectomy, Cholecystectomy, Hernia Repair/Other Other GI Surgeries/Procedures: Last EGD in about August 2019 with previous EGD and colonoscopy in about 2015. Male Surgical History: Reports: Circumcision, Other (See Below). Denies: TURP-Transurethral Resection of Prostate, Vasectomy Other Male Surgeries/Procedures: Circumcision as an . Peritoneal c atheter placement in about September 2014. Left arm AV fistula placement in January 2018 Endocrine Surgical History: Reports: Parathyroidectomy, Other (See Below). Denies: Thyroid Biopsy Other Endocrine Surgeries/Procedures: Excision of one parathyroid gland in July 2017. Neurological Surgical History: Reports: Lumbar Spine, Vertebroplasty, Other (See Below). Denies: C-Spine, Discectomy, Laminectomy, Sacral Spine, Spinal Fusion Other Neurological Surgeries/Procedures: Vertebroplasty in L3 in February 2018 Musculoskeletal Surgical History: Reports: None. Denies: Arthroscopic Procedure, Carpal Tunnel, Ganglion Cyst, Joint Replacement, ORIF, Shoulder Surgery Oncologic Surgical History: Reports: None, Other (See Below) Other Oncologic Surgeries/Procedures: L3 bone biopsy on 01/01/2018 versus February 2018 as above at time of kyphoplasty.? Dermatological Surgical History: Reports: Other (See Below) Other Dermatological Surgeries/Procedures: Excision of benign head nevus in about 1952 or 6 as an infant. - Past Imaging History Past Imaging History: Reports: Angiography (Likely heart catheterization at [facility] in [place] in October 2019 with subsequent surgeries as above. Note previous negative heart catheterization on 04/19/15.), Cardiac Echo (Last echocardiogram on 05/24/14 with ejection fraction of 65% with previous echocardiograms on 08/12/13 and 10/04/11.), CAT Scan (CT of the chest on 11/09/2019. CT scan of the head on 12/26/2019, 04/08/2018 and 11/10/2017.), MRI (MRI of the lumbar spine on 07/15/16.), Sleep Study (Sleep study with CPAP titration on 12/28/12), Stress Testing (Persantine PET/CT scan of the heart on 08/12/13. Cardiolite stress test positive for inferior ischemia on 07/15/13 with ejection fraction of 59%. Previous Cardiolite stress test on 10/19/07.), Ultrasound (Gallbladder ultrasound on 01/27/14. Renal ultrasound on 06/23/13, 01/30/13, and 10/23/11.) Social & Family History - Family History Family Medical History: Unobtainable - Tobacco Use Tobacco Use Status *Q: Never Tobacco User Tobacco Use Within Last Twelve Months: No Used Tobacco, but Quit: No Smoking Cessation Information Provided To Patient: No Second Hand Smoke Exposure: No Second Hand Smoke Education Provided: No - Caffeine Use Caffeine Use: Reports: None, Coffee. Denies: Energy Drinks, Soda, Tea - Alcohol Use Alcohol Use History: Yes Days Per Week of Alcohol Use: 0 Number of Drinks Per Day: 1 Number of Drinks Per Day Comment: Usually mixed drinks about once every 4 months. No previous DWIs, problems with alcohol abuse, etc. 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 No: Dysphagia, Inflammation, Perioral Cyanosis Head: Atraumatic, Normocephalic. No: Facial Swelling, Facial Tenderness, Sinus Tenderness Neck: Normal Inspection, Supple, Non-Tender, Full Range of Motion. No: Lympha denopathy (L), Lymphadenopathy (R), Thyromegaly Respiratory/Chest: No Respiratory Distress, Normal Breath Sounds, No Accessory Muscle Use, Chest Non-Tender, Rales (Mild to moderate diffuse bilateral rales). No: Pleural Rub, Retractions Cardiovascular: Normal Peripheral Pulses, No Edema, No Gallop, No JVD, No Murmur, No Rub, Tachycardia (Regular rhythm), Irregularly Irregular, Other (Mechanical aortic valve clicks). No: Diastolic Murmur, Gallop/S3, Gallop/S4, Friction Rub Peripheral Pulses: 2+: Radial (L), Radial (R), Dorsalis Pedis (L), Dorsalis Pedis (R) GI/Abdominal: Normal Bowel Sounds, Soft, Non-Tender, No Organomegaly, No Distention, No Abnormal Bruit, No Mass, Pelvis Stable, Hernia (2 Centimeter nonincarcerated umbilical), Other (Obese. Left-sided peritoneal dialysis catheter noted. ). No: Guarding (Male) Exam: Deferred Rectal (Males) Exam: Deferred Back Exam: Full Range of Motion, Other (Mild to moderate kyphosis). No: CVA Tenderness (L), CVA Tenderness (R), Muscle Spasm, Paraspinal Tenderness, Vertebral Tenderness Extremities: Non-Tender, No Pedal Edema, Normal Capillary Refill, Other (Mild blistering and ecchymosis on his forearms bilaterally with severe extensive blistering of his distal feet bilaterally involving all of his toes and also plantar and dorsal aspects with no evidence of infection or drainage). No: Mariam's Sign Neurological: Alert, Normal Reflexes (Negative Babinski's are patient unable to perform complete neurological exam), Confused Psychiatric: Normal Affect, Normal Mood Skin Exam: Ecchymosis (As above), Rash (Mild venous stasis dermatitis of the lower extremities bilaterally), Wound/Incision (Blisters as above) Lymphatic: No Adenopathy #1 Interpretation EKG Date: 05/25/20 Time: 20:02 Rhythm: A-Fib (Returned with previous sinus rhythm with first-degree AV block) Rate (Beats/Min): 101 Atkinson: LAD-Left Atkinson Deviation (Extended left cardiac access) P-Wave: Variable QRS: RBBB (0.13 seconds with improved nonspecific ST changes and T wave inversion in leads V2 and V3 with similar changes stable in V1) ST-T: Other (As above. Note noisy baseline and low voltage.) QT: Normal Comparison: Change From Previous EKG (As above since 01/11/2020.) EKG Interpretation Comments: 1. Possible anterior wall cardiac ischemia 2. Recurrent atrial fibrillation with borderline tachycardia and previous first-degree AV block 3. Complete right bundle branch block Course - Vital Signs Last Recorded V/S: Last Vital Signs Temp 37.4 C 05/25/20 21:56 Pulse 91 05/25/20 22:07 Resp 18 05/25/20 22:07 BP 97/60 05/25/20 22:07 Pulse Ox 100 05/25/20 22:07 Vital Signs - 24 hr 05/25/20 05/25/20 05/25/20 19:30 19:50 19:51 Temperature [ 38.3 C H Temporal] Pulse, 114 H Peripheral Pulse, 116 H 114 H Peripheral [ Apical] Respiratory 20 20 Rate Blood Pressure 100/53 L Blood Pressure 114/55 L 100/53 L [Right Upper Arm] O2 Sat by Pulse 90 L 95 Oximetry 05/25/20 05/25/20 05/25/20 20:06 20:24 20:37 Temperature [ Temporal] Pulse, Peripheral Pulse, 94 105 H 97 Peripheral [ Apical] Respiratory 22 H 22 H 27 H Rate Blood Pressure Blood Pressure 90/66 105/50 L 95/57 L [Right Upper Arm] O2 Sat by Pulse 100 90 L 93 L Oximetry 05/25/20 05/25/20 05/25/20 20:52 21:10 21:25 Temperature [ Temporal] Pulse, Peripheral Pulse, 107 H 106 H 103 H Peripheral [ Apical] Respiratory 25 H 25 H 22 H Rate Blood Pressure Blood Pressure 92/38 L 108/42 L 109/54 L [Right Upper Arm] O2 Sat by Pulse 100 99 100 Oximetry 05/25/20 05/25/20 05/25/20 21:38 21:56 22:07 Temperature [ 37.4 C Temporal] Pulse, Peripheral Pulse, 105 H 106 H 91 Peripheral [ Apical] Respiratory 26 H 19 18 Rate Blood Pressure Blood Pressure 88/42 L 96/80 97/60 [Right Upper Arm] O2 Sat by Pulse 98 100 100 Oximetry - Orders/Labs/Meds Orders: Active Orders 24 hr Category Date Time Status Cardiac Monitoring [RC] . DIRECTED Care 05/25/20 19:43 Active EKG Documentation Completion [RC] ASDIRECTED Care 05/25/20 19:43 Active Durán Catheter Insertion [Insert Urinary Catheter] [OM. Care 05/25/20 20:00 Ordered PC] Q24H Oxygen Therapy, ED [RC] PRN Care 05/25/20 19:43 Active Peripheral IV Care [RC] . DIRECTED Care 05/25/20 19:43 Active Pulse Oximetry [RC] CONTINUOUS Care 05/25/20 19:43 Active Up With Assistance [RC] PFP Care 05/25/20 19:43 Active Urinary Catheter Assessment [RC] ASDIRECTED Care 05/25/20 20:00 Active Vital Signs [RC] PFP Care 05/25/20 19:43 Active Nothing per Oral Now Diet [DIET] Diet 05/25/20 Breakfast Active Chest 1V Frontal [CR] Stat Exams 05/25/20 19:43 Taken Head wo Cont [CT] Stat Exams 05/25/20 19:56 Taken CULTURE BLOOD [BC] Stat Lab 05/25/20 19:45 Received CULTURE BLOOD [BC] Stat Lab 05/25/20 20:00 Received CULTURE URINE [RM] Routine Lab 05/25/20 20:00 Ordered URINALYSIS W/MICROSCOPIC [UA W/MICROSCOPIC] [URIN] Lab 05/25/20 20:00 Ordered Routine Sodium Chloride 0.9% [Normal Saline] 1,000 ml Med 05/25/20 22:15 Active IV ASDIRECTED Sodium Chloride 0.9% [Saline Flush] Med 05/25/20 19:43 Active 10 ml FLUSH ASDIRECTED PRN Vancomycin 1 gm Med 05/25/20 21:13 Active Sodium Chloride 0.9% [Normal Saline] 250 ml IV ONETIME Blood Culture x2 Reflex Set [OM.PC] Urgent Oth 05/25/20 19:45 Ordered Obtain Past Medical Record [OM.PC] Urgent Oth 05/25/20 19:43 Active Peripheral IV Insertion Adult [OM.PC] Stat Oth 05/25/20 19:43 Ordered Resuscitation Status Stat Resus Stat 05/25/20 19:43 Ordered Medication Orders Vancomycin HCl 1 gm/ Sodium (Chloride) 250 mls @ 165 mls/hr IV ONETIME ONE Stop: 05/25/20 22:43 Last Admin: 05/25/20 21:27 Dose: 165 mls/hr Documented by: IRIS Sodium Chloride (Normal Saline) 1,000 mls @ 100 mls/hr IV ASDIRECTED CIERA Last Admin: 05/25/20 22:09 Dose: 100 mls/hr Documented by: IRIS Sodium Chloride (Saline Flush) 10 ml FLUSH ASDIRECTED PRN PRN Reason: Keep Vein Open Last Admin: 05/25/20 19:52 Dose: 10 ml Documented by: IRIS Labs: Laboratory Tests 05/25/20 05/25/20 05/25/20 Range/Units 19:45 19:45 19:45 WBC 30.8 H (4.0-10.2) K/uL RBC 2.84 L (4.33-5.41) M/uL Hgb 8.9 L D (13.1-16.8) g/dL Hct 28.0 L (39.0-49.0) % MCV 98.6 H (84.0-98.0) fL MCH 31.3 (28.2-33.3) pg MCHC 31.8 (31.7-36.0) g/dL RDW 14.9 H (11.2-14.1) % Plt Count 148 L D (150-350) K/uL Neut % (Auto) 89.3 H (45.0-80.0) % Lymph % (Auto) 2.4 L (10.0-50.0) % Beadle % (Auto) 8.2 (2.0-14.0) % Eos % (Auto) 0.0 (0.0-5.0) % Baso % (Auto) 0.1 (0.0-2.0) % Neut # (Auto) 27.50 H (1.40-7.00) K/uL Lymph # (Auto) 0.75 (0.50-3.50) K/uL Beadle # (Auto) 2.54 H (0.00-1.00) K/uL Eos # (Auto) 0.00 (0.00-0.50) K/uL Baso # (Auto) 0.03 (0.00-0.20) K/uL PT 27.6 H D (9.5-12.0) SEC INR 2.8 APTT 36.3 H (24.5-32.8) SEC D-Dimer, Quantitative 2030 H (0-400) ng/mL Sodium (136-145) mmol/L Potassium (3.5-5.1) mmol/L Chloride (98-107) mmol/L Carbon Dioxide (21.0-32.0) mmol/L BUN (7-18) mg/dL Creatinine (0.51-1.17) mg/dL Est Cr Clr Drug Dosing Estimated GFR (MDRD) mL/min Glucose (74-106) mg/dL Lactic Acid (0.4-2.0) mmol/L Uric Acid (2.6-7.2) mg/dL Calcium (8.5-10.1) mg/dL Phosphorus (2.6-4.7) mg/dL Magnesium (1.8-2.4) mg/dL Total Bilirubin (0.2-1.0) mg/dL AST (15-37) U/L ALT (12-78) U/L Alkaline Phosphatase (46-116) IU/L Creatine Kinase (26-308) U/L Creatine Kinase Index (0.0-2.5) % CK-MB (CK-2) (0.00-3.60) ng/mL Troponin I (0.000-0.056) ng/mL NT-Pro-B Natriuret Pep (0-125) pg/mL Total Protein (6.4-8.2) g/dL Albumin (3.4-5.0) g/dL TSH, Ultra Sensitive (0.358-3.740) mIU/mL 05/25/20 05/25/20 Range/Units 19:45 19:45 WBC (4.0-10.2) K/uL RBC (4.33-5.41) M/uL Hgb (13.1-16.8) g/dL Hct (39.0-49.0) % MCV (84.0-98.0) fL MCH (28.2-33.3) pg MCHC (31.7-36.0) g/dL RDW (11.2-14.1) % Plt Count (150-350) K/uL Neut % (Auto) (45.0-80.0) % Lymph % (Auto) (10.0-50.0) % Beadle % (Auto) (2.0-14.0) % Eos % (Auto) (0.0-5.0) % Baso % (Auto) (0.0-2.0) % Neut # (Auto) (1.40-7.00) K/uL Lymph # (Auto) (0.50-3.50) K/uL Beadle # (Auto) (0.00-1.00) K/uL Eos # (Auto) (0.00-0.50) K/uL Baso # (Auto) (0.00-0.20) K/uL PT (9.5-12.0) SEC INR APTT (24.5-32.8) SEC D-Dimer, Quantitative (0-400) ng/mL Sodium 139 (136-145) mmol/L Potassium 3.9 (3.5-5.1) mmol/L Chloride 100 (98-107) mmol/L Carbon Dioxide 26.1 (21.0-32.0) mmol/L BUN 32 H (7-18) mg/dL Creatinine 7.40 H* D (0.51-1.17) mg/dL Est Cr Clr Drug Dosing TNP Estimated GFR (MDRD) 7 mL/min Glucose 114 H (74-106) mg/dL Lactic Acid 2.8 H (0.4-2.0) mmol/L Uric Acid 6.0 (2.6-7.2) mg/dL Calcium 8.5 (8.5-10.1) mg/dL Phosphorus 4.2 (2.6-4.7) mg/dL Magnesium 1.3 L (1.8-2.4) mg/dL Total Bilirubin 0.5 (0.2-1.0) mg/dL AST 64 H (15-37) U/L ALT 46 (12-78) U/L Alkaline Phosphatase 107 (46-116) IU/L Creatine Kinase 950 H (26-308) U/L Creatine Kinase Index 0.5 (0.0-2.5) % CK-MB (CK-2) 5.20 H* (0.00-3.60) ng/mL Troponin I 0.270 H* (0.000-0.056) ng/mL NT-Pro-B Natriuret Pep > 96996 H (0-125) pg/mL Total Protein 6.5 (6.4-8.2) g/dL Albumin 2.4 L (3.4-5.0) g/dL TSH, Ultra Sensitive 3.011 (0.358-3.740) mIU/mL Meds: Medications Generic Name Dose Route Start Last Admin Trade Name Freq PRN Reason Stop Dose Admin Vancomycin HCl 1 gm/ Sodium 250 mls @ 165 mls/hr 05/25/20 21:13 05/25/20 21:27 Chloride IV 05/25/20 22:43 165 mls/hr ONETIME ONE Administration Sodium Chloride 1,000 mls @ 100 mls/hr 05/25/20 22:15 05/25/20 22:09 Normal Saline IV 100 mls/hr ASDIRECTED CIERA Administration Sodium Chloride 10 ml 05/25/20 19:43 05/25/20 19:52 Saline Flush FLUSH 10 ml ASDIRECTED PRN Administration Keep Vein Open Discontinued Medications Generic Name Dose Route Start Last Admin Trade Name Freq PRN Reason Stop Dose Admin Sodium Chloride 1,000 mls @ 999 mls/hr 05/25/20 20:29 05/25/20 20:34 Normal Saline IV 05/25/20 21:29 999 mls/hr .BOLUS ONE Administration Piperacillin Sod/Tazobactam 100 mls @ 200 mls/hr 05/25/20 20:30 05/25/20 20:42 Sod 3.375 gm/ Sodium Chloride IV 05/25/20 20:59 200 mls/hr ONETIME ONE Administration Metoprolol Tartrate 2.5 mg 05/25/20 19:49 05/25/20 19:51 Lopressor IVPUSH 05/25/20 19:50 2.5 mg ONETIME ONE Administration - Radiology Interpretation Free Text/Narrative:: 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 No ectopy or extrasystoles. Chest x-ray, portable, shows moderate to severe cardiomegaly with moderate CHF and additional evidence of probable concomitant right middle lobe pneumonia and/or consolidation. Note status post median sternotomy with mechanical aortic and mitral valve replacements. Mildly elevated right hemidiaphragm with mild to moderate COPD changes present. No pneumothorax noted. CT scan of the head without contrast shows no evidence of acute changes, including hemorrhage, etc. Note incidental soft polyp or retention cyst in the left sphenoid sinus. A preliminary verbal report from the radiology department was not received as requested. Departure - Departure Time of Disposition: 22:30 Disposition: DC/Tfer to [facility] 02 Condition: Fair Clinical Impression: CHF, Congestive heart failure, IDDM (insulin dependent diabetes mellitus), D- dimer, elevated, Lactic acid increased, Renal insufficiency, Thrombocytopenia, Thrombocytopenia, Dehydration, Hypoalbuminemia, Blisters of multiple sites, Confusion Anemia Qualifiers: Anemia type: iron deficiency Iron deficiency anemia type: other iron deficiency Qualified Code(s): D50.8 - Other iron deficiency anemias Right middle lobe pneumonia Qualifiers: Pneumonia type: due to unspecified organism Qualified Code(s): J18.9 - Pneumonia, unspecified organism 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 Qualified Code(s): J43.1 - Panlobular emphysema Hypertension Qualifiers: Hypertension type: essential hypertension Qualified Code(s): I10 - Essential (primary) hypertension Atrial fibrillation Qualifiers: Atrial fibrillation type: paroxysmal Qualified Code(s): I48.0 - Paroxysmal atrial fibrillation - Discharge Information *PRESCRIPTION DRUG MONITORING PROGRAM REVIEWED*: Not Applicable *COPY OF PRESCRIPTION DRUG MONITORING REPORT IN PATIENT SANJANA: Not Applicable Referrals: Christina Gary NP [Primary Care Provider] - Forms: ED Department Discharge, Interfacility Transfer [facility] Sepsis Event Note (ED) - Focused Exam Vital Signs: Vital Signs Temp Pulse Pulse Resp BP BP Pulse Ox 05/25/20 22:07 91 18 97/60 100 05/25/20 21:56 37.4 C 106 H 19 96/80 100 05/25/20 21:38 105 H 26 H 88/42 L 98 05/25/20 21:25 103 H 22 H 109/54 L 100 05/25/20 21:10 106 H 25 H 108/42 L 99 05/25/20 20:52 107 H 25 H 92/38 L 100 05/25/20 20:37 97 27 H 95/57 L 93 L 05/25/20 20:24 105 H 22 H 105/50 L 90 L 05/25/20 20:06 94 22 H 90/66 100 05/25/20 19:51 114 H 100/53 L 05/25/20 19:50 114 H 20 100/53 L 95 05/25/20 19:30 38.3 C H 116 H 20 114/55 L 90 L - Problem List & Annotations (1) CHF, Congestive heart failure SNOMED Code(s): 36500418 Code(s): I50.9 - HEART FAILURE, UNSPECIFIED Status: Acute Priority: High Current Visit: No Annotation/Comment:: Telephone consultation at [address] García, hospitalist at [facility] in [place], who does accept the patient for direct admission. Secondary to concomitant possible sepsis and pneumonia he is requesting that additional IV vancomycin be given with IV Zosyn therapy already initiated in the emergency room by me as below. No further treatment recommendations given. Vital signs were improved prior to transfer with overall stable to somewhat improved clinical exam. Ambulance transfer with commercial collections specialist accompaniment to [facility] as above. Moderate CHF by clinical exam and chest x-ray with significant BNP elevation with probable additional dialysis required by accepting providers, although aggressive hydration initially in this emergency room secondary to patient's dehydration, lactic acid elevation, and possible beginning sepsis. Note peritoneal dialysis has not been completed at home today. No current urine output with no IV diuretics given in the emergency room. No evidence of significant change of his right bundle branch block and possible borderline anterior wall cardiac ischemia by today's EKG. Note status post aortic and mechanical aortic valve replacement with therapeutic INR today. Troponin I is significantly elevated with no apparent known chest pain or anginal type symptoms. Significant CK elevation with CK-MB also elevated, however note normal CK index. No clinical evidence of rhabdomyolysis. FULL CODE STATUS was confirmed with the patient's by telephone at 8:55 PM this evening. Per history from the hospitalist the patient was apparently discharged from [place] 1 month ago rather than 2 days ago based on his review of the records. (2) Right middle lobe pneumonia SNOMED Code(s): 965492317 Code(s): J18.9 - PNEUMONIA, UNSPECIFIED ORGANISM Status: Acute Priority: High Current Visit: No Onset Date: 05/25/20 Annotation/Comment:: Probable right middle lobe pneumonia by chest x-ray today with IV Zosyn initiated as above. Note mild fever and significant leukocytosis with history of smoldering multiple myeloma. Additional IV vancomycin to be given during transport as above. Qualifiers: Pneumonia type: due to unspecified organism Qualified Code(s): J18.9 - Pneumonia, unspecified organism (3) Lactic acid increased SNOMED Code(s): 62321194 Code(s): E87.2 - ACIDOSIS Status: Acute Priority: High Current Visit: No Onset Date: 05/25/20 Annotation/Comment:: Note hypotension and tachycardia with significant leukocytosis and a mild fever. Blood cultures x2 were collected. Patient was started on IV Zosyn and IV vancomycin as above. No urine output by Durán catheter so urine for culture and sensitivity could not be collected. Lactic acid to be repeated by accepting providers as per normal routine sepsis protocol. (4) Hypomagnesemia SNOMED Code(s): 180000336 Code(s): E83.42 - HYPOMAGNESEMIA Status: Chronic Priority: Medium Current Visit: No Annotation/Comment:: Consider supplementation by accepting providers. (5) Hypothyroidism (acquired) SNOMED Code(s): 455884998 Code(s): E03.9 - HYPOTHYROIDISM, UNSPECIFIED Status: Chronic Priority: Medium Current Visit: No Annotation/Comment:: TSH normal today. (6) IDDM (insulin dependent diabetes mellitus) SNOMED Code(s): 62467241 Code(s): E11.9 - TYPE 2 DIABETES MELLITUS WITHOUT COMPLICATIONS; Z79.4 - EXPENSE CLERK (CURRENT) USE OF INSULIN Status: Chronic Priority: Medium Current Visit: No Annotation/Comment:: History of previous hypoglycemic episodes. Blood sugar stable prior to arrival and in the emergency room. (7) Anemia SNOMED Code(s): 608076207 Code(s): D64.9 - ANEMIA, UNSPECIFIED Status: Chronic Priority: Medium Current Visit: No Annotation/Comment:: Known history of chronic anemia secondary to iron deficiency and his diabetic nephropathy. Continue to observe closely by accepting providers with no evidence of GI bleed, etc. Qualifiers: Anemia type: iron deficiency Iron deficiency anemia type: other iron deficiency Qualified Code(s): D50.8 - Other iron deficiency anemias (8) Atrial fibrillation SNOMED Code(s): 09729599 Code(s): I48.91 - UNSPECIFIED ATRIAL FIBRILLATION Status: Chronic Priority: High Current Visit: No Annotation/Comment:: Recurrent atrial fibrillation today with mild tachycardia. Overall good response to low-dose IV Lopressor therapy as above. Note therapeutic INR today. Qualifiers: Atrial fibrillation type: paroxysmal Qualified Code(s): I48.0 - Paroxysmal atrial fibrillation (9) COPD (chronic obstructive pulmonary disease) SNOMED Code(s): 40136392 Code(s): J44.9 - CHRONIC OBSTRUCTIVE PULMONARY DISEASE, UNSPECIFIED Status: Chronic Priority: Medium Current Visit: No Annotation/Comment:: COPD by chest x-ray with no current medical therapy. Consider PFTs depending on his clinical course. Qualifiers: COPD type: emphysema Emphysema type: panlobular Qualified Code(s): J43.1 - Panlobular emphysema (10) Hypertension SNOMED Code(s): 66651819 Code(s): I10 - ESSENTIAL (PRIMARY) HYPERTENSION Status: Chronic Priority: Medium Current Visit: No Annotation/Comment:: Blood Pressures initially decreased by history from the paramedics as above, however significantly improved at time of arrival in our facility with no treatment. Patient is tolerating low-dose Lopressor therapy well. Previous history of intermittent hypotension likely secondary to his peritoneal dialysis. Qualifiers: Hypertension type: essential hypertension Qualified Code(s): I10 - Essential (primary) hypertension (11) D-dimer, elevated SNOMED Code(s): 518205713 Code(s): R79.89 - OTHER SPECIFIED ABNORMAL FINDINGS OF BLOOD CHEMISTRY Status: Chronic Priority: High Current Visit: No Annotation/Comment:: Known history of chronic d-dimer elevation. Further work-up depending on his clinical course. Note chronic renal failure as above. No clinical evidence of DVT or PE with therapeutic INR today. (12) Thrombocytopenia SNOMED Code(s): 975648065 Code(s): D69.6 - THROMBOCYTOPENIA, UNSPECIFIED Status: Acute Priority: Medium Current Visit: No Onset Date: 05/25/20 Annotation/Comment:: Mild thrombocytopenia today with current Coumadin therapy. Observe closely by accepting providers. (13) Multiple myeloma SNOMED Code(s): 386009008 Code(s): C90.00 - MULTIPLE MYELOMA NOT HAVING ACHIEVED REMISSION Status: Chronic Priority: Medium Current Visit: No Annotation/Comment:: Smoldering multiple myeloma by history. Current status and treatment are not none. Qualifiers: Multiple myeloma remission status: not in remission Qualified Code(s): C90.00 - Multiple myeloma not having achieved remission (14) Renal insufficiency SNOMED Code(s): 852183615, 791002675 Code(s): N28.9 - DISORDER OF KIDNEY AND URETER, UNSPECIFIED Status: Chronic Priority: High Current Visit: No Annotation/Comment:: Note home peritoneal dialysis not conducted today with history of severe diabetic nephropathy. (15) Hypoalbuminemia SNOMED Code(s): 958696077 Code(s): E88.09 - OTH DISORDERS OF PLASMA-PROTEIN METABOLISM, NEC Status: Chronic Priority: Medium Current Visit: No Annotation/Comment:: Consider high protein Glucerna supplement with caution secondary to his renal disease. (16) Confusion SNOMED Code(s): 721276522 Code(s): R41.0 - DISORIENTATION, UNSPECIFIED Status: Acute Priority: High Current Visit: No Annotation/Comment:: Note normal CT scan of the head results as above. Confusion improved at discharge with likely multifactorial etiology, including current pneumonia, possible sepsis, etc. Note that urine specimen could not be collected secondary to absence of urine output. Continue close observation by accepting providers. - Problem List Review Problem List Initiated/Reviewed/Updated: Yes - My Orders Last 24 Hours: My Active Orders 05/25/20 Breakfast Nothing per Oral Now Diet [DIET] 05/25/20 19:43 Cardiac Monitoring [RC] . DIRECTED EKG Documentation Completion [RC] ASDIRECTED Oxygen Therapy, ED [RC] PRN Peripheral IV Care [RC] . DIRECTED Pulse Oximetry [RC] CONTINUOUS Up With Assistance [RC] PFP Vital Signs [RC] PFP Chest 1V Frontal [CR] Stat Sodium Chloride 0.9% [Saline Flush] 10 ml FLUSH ASDIRECTED PRN Obtain Past Medical Record [OM.PC] Urgent Peripheral IV Insertion Adult [OM.PC] Stat Resuscitation Status Stat 05/25/20 19:45 CULTURE BLOOD [BC] Stat Blood Culture x2 Reflex Set [OM.PC] Urgent 05/25/20 19:56 Head wo Cont [CT] Stat 05/25/20 20:00 Durán Catheter Insertion [Insert Urinary Catheter] [OM.PC] Q24H Urinary Catheter Assessment [RC] ASDIRECTED CULTURE BLOOD [BC] Stat CULTURE URINE [RM] Routine URINALYSIS W/MICROSCOPIC [UA W/MICROSCOPIC] [URIN] Routine 05/25/20 21:13 Vancomycin 1 gm Sodium Chloride 0.9% [Normal Saline] 250 ml IV ONETIME 05/25/20 22:15 Sodium Chloride 0.9% [Normal Saline] 1,000 ml IV ASDIRECTED - Assessment/Plan Last 24 Hours: My Active Orders 05/25/20 Breakfast Nothing per Oral Now Diet [DIET] 05/25/20 19:43 Cardiac Monitoring [RC] . DIRECTED EKG Documentation Completion [RC] ASDIRECTED Oxygen Therapy, ED [RC] PRN Peripheral IV Care [RC] . DIRECTED Pulse Oximetry [RC] CONTINUOUS Up With Assistance [RC] PFP Vital Signs [RC] PFP Chest 1V Frontal [CR] Stat Sodium Chloride 0.9% [Saline Flush] 10 ml FLUSH ASDIRECTED PRN Obtain Past Medical Record [OM.PC] Urgent Peripheral IV Insertion Adult [OM.PC] Stat Resuscitation Status Stat 05/25/20 19:45 CULTURE BLOOD [BC] Stat Blood Culture x2 Reflex Set [OM.PC] Urgent 05/25/20 19:56 Head wo Cont [CT] Stat 05/25/20 20:00 Durán Catheter Insertion [Insert Urinary Catheter] [OM.PC] Q24H Urinary Catheter Assessment [RC] ASDIRECTED CULTURE BLOOD [BC] Stat CULTURE URINE [RM] Routine URINALYSIS W/MICROSCOPIC [UA W/MICROSCOPIC] [URIN] Routine 05/25/20 21:13 Vancomycin 1 gm Sodium Chloride 0.9% [Normal Saline] 250 ml IV ONETIME 05/25/20 22:15 Sodium Chloride 0.9% [Normal Saline] 1,000 ml IV ASDIRECTED Assessment:: As above Plan: As above. Extensive precautions were given to the patient and his , who are in agreement with the treatment plan. Ambulance transfer to [facility] in [place] as above.
[2020-05-25] MEDS ORDERED: Metoprolol Tartrate 5 MG/5 ML SDV IVPUSH ONE (19:49)
[2020-05-25 20:14] LABS: CHLORIDE,CL 100 mmol/L (98-107); SODIUM,NA 139 mmol/L (136-145)
[2020-05-25 20:21] LABS: PTT,PARTIAL THROMBOPLSTIN TIME 36.3 SEC (24.5-32.8)
[2020-05-25] MEDS ORDERED: Sodium Chloride 0.9% 1,000 ML IV ONE (20:29)
[2020-05-25] MEDS ORDERED: Piperacillin/Tazobactam 3.375 GM in Sodium Chloride 0.9% 100 ML IV ONE (20:30)
[2020-05-25] MEDS ORDERED: Sodium Chloride 0.9% 1,000 ML IV SCH (22:15)
== END 2020-05-25 22:30 ==
LOC: LL.ED 19:28
DX: I13.0 Hypertensive heart and chronic kidney disease with heart failure and stage 1 through stage 4 chronic kidney disease, or unspecified chronic kidney disease (principal); I50.9 Heart failure, unspecified; N18.9 Chronic kidney disease, unspecified; J18.9 Pneumonia, unspecified organism; I48.0 Paroxysmal atrial fibrillation; J43.1 Panlobular emphysema; D50.8 Other iron deficiency anemias; E11.9 Type 2 diabetes mellitus without complications; R79.1 Abnormal coagulation profile; R74.02 Elevation of levels of lactic acid dehydrogenase [LDH]; N29 Other disorders of kidney and ureter in diseases classified elsewhere; D69.6 Thrombocytopenia, unspecified; E86.0 Dehydration; E88.09 Other disorders of plasma-protein metabolism, not elsewhere classified; R41.0 Disorientation, unspecified; E11.319 Type 2 diabetes mellitus with unspecified diabetic retinopathy without macular edema; I48.91 Unspecified atrial fibrillation; I25.10 Atherosclerotic heart disease of native coronary artery without angina pectoris; E11.21 Type 2 diabetes mellitus with diabetic nephropathy; M19.90 Unspecified osteoarthritis, unspecified site; E11.42 Type 2 diabetes mellitus with diabetic polyneuropathy; E66.9 Obesity, unspecified; E11.22 Type 2 diabetes mellitus with diabetic chronic kidney disease; Z79.82 Long term (current) use of aspirin; Z79.4 Long term (current) use of insulin; Z79.01 Long term (current) use of anticoagulants; Z79.899 Other long term (current) drug therapy; Z86.73 Personal history of transient ischemic attack (TIA), and cerebral infarction without residual deficits; Z95.1 Presence of aortocoronary bypass graft
CPT/HCPCS: 36415; 51702; 70450; 71045; 80053; 82550; 82553; 83605; 83735; 83880; 84100; 84443; 84484; 84550; 85025; 85379; 85610; 85730; 87040; 87077; 87186; 93005; 96365; 96367; 96375; 99285-25; J2543; J3370; J3490; J7030; J7050

== ENCOUNTER 2021-12-14 22:13 | Emergency (ER) | payer MEDICARE, BC ==
[2021-12-14] MEDS ORDERED: Sodium Chloride 0.9% 10 ML Syringe FLUSH PRN (22:27)
[2021-12-14] MEDS: Morphine 4 MG/ML Syringe IVPUSH PRN (23:00)
[2021-12-14] MEDS: Sodium Chloride 0.9% 1,000 ML IV ONE (23:01)
[2021-12-14 23:12] LABS: CHLORIDE,CL 101 mmol/L (98-107); SODIUM,NA 138 mmol/L (136-145)
[2021-12-14] MEDS: Metoclopramide 10 MG/2 ML SDV IVPUSH ONE (23:13)
[2021-12-14 23:15] LABS: ANION GAP 8.7 meq/L (7-15); ESTIMATED GFR 21 mL/min (>=60)
[2021-12-14] MEDS ORDERED: Dextrose 5%-0.9% NaCl with KCl 1,000 ML IV SCH (23:30)
[2021-12-14] MEDS: Morphine 10 MG/ML Syringe IVPUSH ONE (23:39)
[2021-12-15] MEDS: Potassium Chloride Riders 10 MEQ in Premix Bag 1 BAG IV SCH (00:21)
== END 2021-12-15 01:45 ==
LOC: LL.ED 22:13
DX: K55.019 Acute (reversible) ischemia of small intestine, extent unspecified (principal); I11.0 Hypertensive heart disease with heart failure; I50.9 Heart failure, unspecified; I25.10 Atherosclerotic heart disease of native coronary artery without angina pectoris; J44.9 Chronic obstructive pulmonary disease, unspecified; E11.319 Type 2 diabetes mellitus with unspecified diabetic retinopathy without macular edema; Z79.899 Other long term (current) drug therapy; Z79.82 Long term (current) use of aspirin; Z79.4 Long term (current) use of insulin; Z79.01 Long term (current) use of anticoagulants
CPT/HCPCS: 36415; 74176; 80053; 83605; 83735; 85025; 96361; 96365; 96375; 96376; 99284; 99285-25; J2270; J2765; J3480; J7030